=== PATIENT | male | born 1970 | race Caucasian/White ===

== ENCOUNTER 2016-09-06 11:02 | Inpatient (IN) | payer OTHER ==
[2016-09-06] MEDS ORDERED: Thiamine IV* 100 MG, Folic Acid IV* 1 MG, Multiple Vitamin IV ADULT* 10 ML in NS 0.9% 1... IV ONE (11:15)
--- NOTE | 2016-09-06 11:42 | RAD ---
HISTORY: Syncope COMPARISONS: None TECHNIQUE: Multiple contiguous axial CT scans were obtained of the head without intravenous contrast. FINDINGS: HEMORRHAGE/INFARCT: There is no hemorrhage or acute infarct. MASSES/SHIFT: There is no mass or shift. EXTRA-AXIAL SPACES: There are no extra-axial fluid collections. SULCI AND VENTRICLES: The sulci and ventricles are normal in size and position for the patient's stated age. CEREBRUM: There are no focal parenchymal abnormalities. BRAINSTEM: There are no focal parenchymal abnormalities. CEREBELLUM: There are no focal parenchymal abnormalities. VESSELS: The vessels are grossly normal. PARANASAL SINUSES: There are mucus retention cysts versus polypoid mucosal thickening of the maxillary sinuses bilaterally. ORBITS: The orbits are unremarkable. BONES AND SOFT TISSUE: No bone or soft tissue abnormalities are noted. OTHER: None IMPRESSION: NO ACUTE INTRACRANIAL PATHOLOGY.
--- NOTE | 2016-09-06 11:46 | RAD ---
HISTORY: Syncope COMPARISONS: None TECHNIQUE: Multiple contiguous axial CT scans were obtained of the cervical spine without intravenous contrast, with coronal and sagittal multiplanar reformations. FINDINGS: The study is limited by patient motion artifact. BRAIN: The visualized brain is unremarkable CENTRAL CANAL: Evaluation of the central canal is limited on CT technique; however, there is no obvious canalicular mass or epidural hemorrhage. ALIGNMENT: There is straightening of the cervical lordosis. VERTEBRAL BODIES: The odontoid process is intact. The atlantoaxial intervals are symmetric. The vertebral bodies are normal in attenuation, without fracture. There is multilevel anterolateral marginal osteophyte formation. JOINTS: There is osteoporosis of the uncovertebral and facet joints. MUSCULATURE: Unremarkable INTERVERTEBRAL DISCS: There is diffuse loss of intervertebral disc height. AXIAL IMAGES: C2-C3: There is no osseous neural foraminal narrowing or central canal stenosis. C3-C4: There is no osseous neural foraminal narrowing or central canal stenosis. C4-C5: There is no osseous neural foraminal narrowing or central canal stenosis. C5-C6: There is bilateral uncovertebral and facet hypertrophy with moderate to severe bilateral neural foraminal narrowing. C6-C7: There is bilateral uncovertebral and facet hypertrophy with moderate to severe bilateral neural foraminal narrowing. C7-T1: There is no osseous neural foraminal narrowing or central canal stenosis. SOFT TISSUES: The visualized soft tissues of the neck are unremarkable. The prevertebral fat stripe is preserved. OTHER: None. IMPRESSION: 1. DEGENERATIVE DISC DISEASE AND OSTEOARTHRITIS. 2. NO ACUTE OSSEOUS INJURY TO THE CERVICAL SPINE
[2016-09-06 11:52] LABS: Hematocrit 44 % (42-52); Hemoglobin 14.8 g/dl (14.0-18.0); Mean Corpuscular HGB Conc 33 g/dl (31-36); Mean Corpuscular Hemoglobin 30 pg (27-31); Mean Corpuscular Volume 90 fL (80-94); Mean Platelet Volume 8 um3 (7.4-10.4); Red Blood Count 4.91 10^6/ul (4.0-5.4); Red Cell Distribution Width 14 % (10.5-15); White Blood Count 5.9 10^3/ul (3.5-10.8)
[2016-09-06 12:17] LABS: Albumin 4.2 g/dL (3.2-5.2); Calcium 8.5 mg/dL (8.6-10.3); EGFR African American 139.7 (>60); EGFR Non-African American 108.6 (>60); Globulin 2.6 g/dL (2-4); Potassium 3.4 mmol/L (3.5-5.0); Total Bilirubin 1.2 mg/dL (0.2-1.0); Total Protein 6.8 g/dL (6.4-8.9); Troponin I 0.01 ng/mL (<0.04)
--- NOTE | 2016-09-06 12:35 | RAD ---
HISTORY: Syncope COMPARISONS: None VIEWS:1: Single frontal portable view of the chest at 12:10 PM FINDINGS: LINES AND TUBES: None. CARDIOMEDIASTINAL SILHOUETTE: The cardiomediastinal silhouette is normal for portable technique. PLEURA: The costophrenic angles are sharp. No pleural abnormalities are noted. LUNG PARENCHYMA: The lungs are clear. ABDOMEN: The upper abdomen is clear. There is no subphrenic gas. BONES AND SOFT TISSUES: No bone or soft tissue abnormalities are noted. IMPRESSION: NO ACTIVE CARDIOPULMONARY DISEASE.
[2016-09-06 12:47] LABS: Urine Bacteria Absent (Absent); Urine Bilirubin 1+ (Negative); Urine Glucose 1+(50 mg/dL) (Negative); Urine Nitrite Negative (Negative)
[2016-09-06 12:52] LABS: Magnesium 1.7 mg/dL (1.9-2.7)
[2016-09-06 12:56] LABS: Benzodiazepine Urine Screen None Detected (None Detect)
[2016-09-06] MEDS ORDERED: Magnesium Oxide TAB* 400 MG PO ONE (14:10)
[2016-09-06] MEDS ORDERED: Potassium Chlor TAB* 20 MEQ TAB.ER PO ONE (14:10)
[2016-09-06] MEDS ORDERED: NS 0.9% 1000 ML* 1,000 ML IV ONE (15:41)
[2016-09-06] MEDS ORDERED: Magnesium Sulfate 1 GM IV* 1 GM/100 ML BAG IV ONE (15:43)
[2016-09-06] MEDS: LORazepam TAB(*) 1 MG PO SCH ×3 (16:46→21:37)
[2016-09-06] MEDS: NS 0.9% 1000 ML* 1,000 ML IV SCH (17:52)
--- NOTE | 2016-09-06 21:36 | HP ---
HISTORY AND PHYSICAL: DATE OF ADMISSION: 09/06/16 ATTENDING PHYSICIAN: Dr. Buitrago* (report dictated Pam May, ANTONI). PRIMARY CARE PROVIDER: [facility] per the patient, he does not remember his primary care provider's name and reports that she is a new provider to him, as well as he has not been to the doctor in many years. CHIEF COMPLAINT: Alcohol withdrawal and fall. HISTORY OF PRESENT ILLNESS: Mr. Ordoñez is a 45-year-old male with a past medical history of long-term alcohol abuse, depression, hypertension who presented to the emergency department as a clinical assessment team call as the patient was dropped off at the front entrance in which he ran into the building , lost his footing and had a fall. The patient denies loss of consciousness. There was a question if he actually had a syncopal episode, but per the patient , he did not lose consciousness and as well, the video cameras were evaluated and the patient appeared to have lost his stepping. The patient reported that he came to the hospital for "help with alcohol detox." He reports that he drinks a liter of vodka a day and does not remember the last time he has not drank, he reports it has been many years. He reports that he has been trying to cut back at home; however, he has been getting "severe tremors." Currently, in the emergency department, he reports tremors. He is noted to be tachycardic and had a run of possible tachycardia versus SVT with heart rate in the 160s which were resolved with a vagal maneuver. The patient denies any history of detox, seizures, or delirium tremens. He does report that maybe 6 or 7 years ago, he quit for approximately 1 year in which he was a patient at [facility] outpatient rehab. He reports other than that 1 year of being sober. He has consistently drank since age 24 years old. Again, he reports that he drinks a liter of vodka a day. He denies recreational drug use. Distant tobacco abuse. The patient reports a history of hypertension, but does not take any medications. He has not seen a primary care provider in "many many years." Currently, in the emergency department, the patient is alert and oriented x3. He was very pleasant on evaluation. He appears to have some tremors which the patient also admits to. Again denies hallucinations, nausea, vomiting, diarrhea , or abdominal pain. PAST MEDICAL HISTORY: 1. Long-term alcohol abuse. 2. Distant tobacco abuse. 3. Depression. 4. Hypertension, untreated. HOME MEDICATIONS: 1. Zoloft 50 mg p.o. daily. 2. Ibuprofen 600 mg p.o. q.6 hours p.r.n. ALLERGIES: No known allergies. FAMILY HISTORY: The patient reports a family history in his grandparents of coronary artery disease, type 2 diabetes, and cancer. The patient reports that his mother and father are both alcoholics. SOCIAL HISTORY: The patient reports that he quit tobacco abuse in the . Drinks 1 L of vodka a day for the past 22 years, reporting 1 year of sobriety approximately 6 years ago. The patient denies recreational drug use. He is and has 2 children, ages 11 and 6. His is his healthcare proxy. REVIEW OF SYSTEMS: A 14-point review of systems was performed. All the pertinent positives and negatives are mentioned in the history of present illness. All the remaining systems are negative. PHYSICAL EXAMINATION GENERAL APPEARANCE: A 45-year-old male lying in the emergency department stretcher. Alert and oriented x3. Appears to have tremors, although he appears comfortable. Answering questions appropriately. Very pleasant on examination. VITAL SIGNS: Temperature 98.6, heart rate 110, respirations 16, O2 sat 98% on room air, blood pressure 131/75. HEENT: Head is normocephalic, atraumatic. Pupils equal, round, reactive to light. Oropharynx is clear. Dry mucous membranes. Good dentition. NECK: Supple. No cervical or supraclavicular lymphadenopathy. RESPIRATORY: Lungs are clear to auscultation bilaterally. Good aeration throughout. No accessory muscle use. CARDIAC: S1, S2. No murmurs, rubs, or gallops appreciated. No lower extremity edema noted. 2+ DP pulses bilaterally. ABDOMEN: Obese, distended, soft, nontender. Normal bowel sounds x4. Questionable hepatomegaly. MUSCULOSKELETAL: No clubbing or cyanosis noted. Full range of motion in all extremities. Strength is 5/5 throughout. SKIN: Warm, pink, dry. NEUROLOGIC: Cranial nerves II through XII are intact. Moves all extremities equally. Strength is 5/5 throughout. PSYCH: Alert and oriented x3. Appears slightly anxious. LABORATORY DATA AND DIAGNOSTIC STUDIES: WBC is 5.9, RBC 4.91, Hgb 14.8, HCT 44 , MCV 90, MCH 30, MCHC 33, RDW 14, platelet count 120. Sodium 140, potassium 3.4, chloride 100, carbon dioxide 28, anion gap 12, BUN 7, creatinine 0.78, glucose 166, lactic acid 2.9, calcium 8.5, magnesium 1.7. Total bilirubin 1.20 , AST 485, ALT 189, alkaline phosphatase 148, total creatine kinase 183. Troponin 0.01. Total protein 6.8, albumin 4.2, amylase 45. Alcohol level 451. Drug toxicology screen negative. CT of spine cervical, impression: 1. "Degenerative disk disease and osteoarthritis. 2. No acute osseous injury to the cervical spine." Chest x-ray, impression: "No active cardiopulmonary disease." Brain CT, impression: "No acute intracranial pathology." EKG: Sinus tachycardia with a rate of 107. No acute ischemic changes noted. No prior EKG to compare to. ASSESSMENT AND PLAN: Mr. Ordoñez is a 45-year-old male with a past medical history of longstanding alcohol abuse; hypertension, uncontrolled; depression; and distant tobacco abuse who presented to the emergency department today requesting detox, found to be having withdrawals. 1. Alcohol withdrawal: The patient will be monitored on telemetry. His alcohol level is 451 in the emergency department. His last drink was this morning. He is noted to have tremors in the emergency department. Plan for WAM protocol with Ativan sliding scale. The patient denies a history of seizures or delirium tremens. Normal saline x120 mL an hour x2 L. Replace electrolytes. Continue thiamine, folic acid, and multivitamin. Recheck labs in the morning. Social work consult. After the patient is more stable, the patient would benefit from a psych consult. 2. Fall: Initially, this was questioned to be syncope; however, the patient remembers tripping and falling and the event was re-watched on our video cameras. It did not appear the patient lost consciousness. I do not think he needs further workup for a syncopal episode. 3. Transaminitis secondary to alcohol abuse: No signs of ascites. The patient should undergo a liver ultrasound when he is more clinically stable. 4. Lactic acidosis: Noted to have a lactic acid of 2.9. Suspect secondary to dehydration. The patient received a liter in the emergency department. We will continue him on a rate. 5. Depression: The patient does report that he feels "extremely depressed" but denies suicidal ideation. Again, after the patient is more stable, I think he warrants a psych consult. 6. Hypertension: Per the patient, he takes no medications for this. He is fairly well controlled in the emergency department. Continue to monitor and treat as needed. 7. DVT prophylaxis: Heparin subcu. 8. Hospital status: Observation. TIME SPENT: Approximately 60 minutes were spent on this admission. PAM MAY, ANTONI [id number]/CPS #: [id number] OC
[2016-09-06] MEDS: Heparin VIAL(*) 5000 UNITS/ML VIAL (FIVE THOUSAND) SUBCUT SCH (21:39)
[2016-09-06] MEDS: Calcium Carbonate CHEW TAB* 500 MG (TUMS) PO PRN ×2 (22:07→22:08)
[2016-09-07] MEDS: LORazepam TAB(*) 1 MG PO SCH ×5 (01:31→09:17)
[2016-09-07] MEDS: NS 0.9% 1000 ML* 1,000 ML IV SCH (02:06)
[2016-09-07 05:15] LABS: Hematocrit 42 % (42-52); Hemoglobin 13.9 g/dl (14.0-18.0); Mean Corpuscular HGB Conc 33 g/dl (31-36); Mean Corpuscular Hemoglobin 30 pg (27-31); Mean Corpuscular Volume 90 fL (80-94); Mean Platelet Volume 9 um3 (7.4-10.4); Red Blood Count 4.63 10^6/ul (4.0-5.4); Red Cell Distribution Width 13 % (10.5-15)
[2016-09-07 05:18] LABS: Add Diff/Slide Review? Slide Review Added; Comments Flag Yes
[2016-09-07 05:28] LABS: Albumin 3.9 g/dL (3.2-5.2); BUN/Creatinine Ratio 5.4 (8-20); Calcium 8.2 mg/dL (8.6-10.3); EGFR African American 204.8 (>60); EGFR Non-African American 159.2 (>60); Globulin 2.6 g/dL (2-4); Magnesium 1.4 mg/dL (1.9-2.7); Potassium 3.8 mmol/L (3.5-5.0); Total Bilirubin 1.6 mg/dL (0.2-1.0); Total Protein 6.5 g/dL (6.4-8.9)
[2016-09-07] MEDS: Heparin VIAL(*) 5000 UNITS/ML VIAL (FIVE THOUSAND) SUBCUT SCH ×3 (05:53→22:15)
[2016-09-07] MEDS: Sertraline* 25 MG TAB PO SCH (07:07)
[2016-09-07] MEDS: Multivitamins/Minerals TAB PO SCH (07:08)
[2016-09-07] MEDS: Thiamine TAB* 100 MG TAB PO SCH (07:08)
[2016-09-07] MEDS: Folic Acid TAB* 1 MG PO SCH (07:08)
--- NOTE | 2016-09-07 08:37 | ED ---
Edward Smith Matthew, scribed for Artur Gates MD on 09/06/16 at 1208 . Adult Trauma - HPI Summary HPI Summary: A 45 y/o male presents to the ED after falling while running into the hospital. According to the nurse, the patient fell face forward striking his head and nose. The fall was not controlled and it was a questionable syncopal episode. He is unsure if had LOC. The patient came to the ED today seeking detox for his long standing Hx of alcohol abuse. He states that he drinks daily and drank this morning, but it not intoxicated. He denies any pain including neck and back pain. - History of Current Complaint Chief Complaint: EDSyncope Stated Complaint: SYNCOPE Time Seen by Provider: 09/06/16 11:06 Hx Obtained From: Patient Mechanism of Injury: Fall Ambulatory at the Scene: No Loss of Consciousness: unsure Onset/Duration: Started Minutes Ago, Traumatic Current Severity: None Pain Intensity: 0 Pain Scale Used: 0-10 Numeric Location: Head Aggravating Factor(s): Nothing Alleviating Factor(s): Nothing Associated Signs & Symptoms: Positive: Other: - NO back or neck pain - Allergy/Home Medications Allergies/Adverse Reactions: Allergies Allergy/AdvReac Type Severity Reaction Status Date / Time No Known Allergies Allergy Verified 09/11/12 12:51 Home Medications: Home Medications Sertraline* [Zoloft*] 50 mg PO DAILY 09/06/16 [History Confirmed 09/06/16] PMH/Surg Hx/FS Hx/Imm Hx Endocrine/Hematology History: Denies: Hx Diabetes, Hx Thyroid Disease Cardiovascular History: Denies: Hx Hypertension Respiratory History: Denies: Hx Asthma, Hx Chronic Obstructive Pulmonary Disease (COPD) GI History: Denies: Hx Ulcer Infectious Disease History: Denies: Hx Hepatitis, Hx Human Immunodeficiency Virus (HIV), Traveled Outside the [place] in Last 30 Days - Family History Known Family History: Positive: Cardiac Disease, Hypertension, Diabetes - Social History Alcohol Use: Daily Hx Substance Use: No Substance Use Type: Reports: None Hx Tobacco Use: Yes Review of Systems Constitutional: Negative Eyes: Negative ENT: Negative Cardiovascular: Negative Respiratory: Negative Gastrointestinal: Negative Genitourinary: Negative Musculoskeletal: Negative Skin: Negative Positive: Syncope - Questionable Psychological: Other - alcohol abuse All Other Systems Reviewed And Are Negative: Yes Physical Exam - Summary Physical Exam Summary: VITAL SIGNS: Reviewed. GENERAL: Patient is a well developed and nourished male who is lying comfortable in the stretcher. He has alcohol in his breath. Patient is not in any acute respiratory distress. HEAD AND FACE: No signs of trauma. No ecchymosis, hematomas or skull depressions. No sinus tenderness. EYES: PERRLA, EOMI x 2, No injected conjunctiva, no nystagmus. EARS: Hearing grossly intact. Ear canals and tympanic membranes are within normal limits. No Hemotympanum. MOUTH: Oropharynx within normal limits. NECK: Supple, trachea is midline, no adenopathy, no JVD, no carotid bruit. Patient was in a C spine collar. no c-spine tenderness, neck with full ROM. However since patient is intoxicated I keep the C spine. CHEST: Symmetric, no tenderness at palpation LUNGS: Clear to auscultation bilaterally. No wheezing or crackles. CVS: Regular rate and rhythm, S1 and S2 present, no murmurs or gallops appreciated. ABDOMEN: Soft, non-tender. No signs of distention. No rebound no guarding, and no masses palpated. Bowel sounds are normal. EXTREMITIES: FROM in all major joints, no edema, no cyanosis or clubbing. NEURO: Alert and oriented x 3. No acute neurological deficits. Speech is normal and follows commands. SKIN: Dry and warm Triage Information Reviewed: Yes Vital Signs On Initial Exam: Initial Vitals Temp Pulse Resp BP Pulse Ox 99.4 F 103 20 158/103 92 09/06/16 11:07 09/06/16 11:07 09/06/16 11:07 09/06/16 11:07 09/06/16 11:07 Vital Signs Reviewed: Yes Procedures - Procedure Summary Procedure Summary: Procedure - Suture nasal bride 0.7 mm superficial suture Patient was positioned appropriately, 5 cc lidocaine without epinephrine was used as a local anesthetic. 100cc NaCl was used for irrigation. Patient was sterile draped with wound exposed. _4_x _5.0 nylon interrupted sutures were placed with good approximation. Procedure tolerated without complications. Wound dressed with bacitracin and sterile gauze. Diagnostics - Vital Signs Vital Signs Temp Pulse Resp BP Pulse Ox 09/06/16 11:07 99.4 F 103 20 158/103 92 - Laboratory Lab Results: Lab Results 09/06/16 09/06/16 09/06/16 Range/Units 11:40 11:40 11:40 WBC 5.9 (3.5-10.8) 10^3/ul RBC 4.91 (4.0-5.4) 10^6/ul Hgb 14.8 (14.0-18.0) g/dl Hct 44 (42-52) % MCV 90 (80-94) fL MCH 30 (27-31) pg MCHC 33 (31-36) g/dl RDW 14 (10.5-15) % Plt Count 120 L (150-450) 10^3/ul MPV 8 (7.4-10.4) um3 Neut % (Auto) 58.3 (38-83) % Lymph % (Auto) 30.0 (25-47) % [place] % (Auto) 10.9 H (1-9) % Eos % (Auto) 0.4 (0-6) % Baso % (Auto) 0.4 (0-2) % Absolute Neuts (auto) 3.5 (1.5-7.7) 10^3/ul Absolute Lymphs (auto) 1.8 (1.0-4.8) 10^3/ul Absolute Monos (auto) 0.6 (0-0.8) 10^3/ul Absolute Eos (auto) 0 (0-0.6) 10^3/ul Absolute Basos (auto) 0 (0-0.2) 10^3/ul Absolute Nucleated RBC 0.01 10^3/ul Nucleated RBC % 0.2 Sodium 140 (133-145) mmol/L Potassium 3.4 L (3.5-5.0) mmol/L Chloride 100 L (101-111) mmol/L Carbon Dioxide 28 (22-32) mmol/L Anion Gap 12 H (2-11) mmol/L BUN 7 (6-24) mg/dL Creatinine 0.78 (0.67-1.17) mg/dL Est GFR ( Amer) 139.7 (>60) Est GFR (Non-Af Amer) 108.6 (>60) BUN/Creatinine Ratio 9.0 (8-20) Glucose 166 H (70-100) mg/dL Lactic Acid 2.9 H* (0.5-2.0) mmol/L Calcium 8.5 L (8.6-10.3) mg/dL Magnesium 1.7 L (1.9-2.7) mg/dL Total Bilirubin 1.20 H (0.2-1.0) mg/dL AST 485 H (13-39) U/L ALT 189 H (7-52) U/L Alkaline Phosphatase 148 H (34-104) U/L Total Creatine Kinase 183 (10-223) U/L Troponin I 0.01 (<0.04) ng/mL Total Protein 6.8 (6.4-8.9) g/dL Albumin 4.2 (3.2-5.2) g/dL Globulin 2.6 (2-4) g/dL Albumin/Globulin Ratio 1.6 (1-3) Amylase 45 (29-103) U/L Urine Color Urine Appearance Urine pH (5-9) Ur Specific [place] (1.010-1.030) Urine Protein (Negative) Urine Ketones (Negative) Urine Blood (Negative) Urine Nitrate (Negative) Urine Bilirubin (Negative) Urine Urobilinogen (Negative) Ur Leukocyte Esterase (Negative) Urine WBC (Auto) (Absent) Urine RBC (Auto) (Absent) Ur Squamous Epith Cells (Absent) Urine Bacteria (Absent) Hyaline Casts (Absent) Urine Glucose (Negative) Urine Opiates Screen (None Detect) Ur Barbiturates Screen (None Detect) Ur Phencyclidine Scrn (None Detect) Ur Amphetamines Screen (None Detect) U Benzodiazepines Scrn (None Detect) Urine Cocaine Screen (None Detect) U Cannabinoids Screen (None Detect) Serum Alcohol 451 H* (<10) mg/dL 09/06/16 09/06/16 Range/Units 12:30 12:30 WBC (3.5-10.8) 10^3/ul RBC (4.0-5.4) 10^6/ul Hgb (14.0-18.0) g/dl Hct (42-52) % MCV (80-94) fL MCH (27-31) pg MCHC (31-36) g/dl RDW (10.5-15) % Plt Count (150-450) 10^3/ul MPV (7.4-10.4) um3 Neut % (Auto) (38-83) % Lymph % (Auto) (25-47) % [place] % (Auto) (1-9) % Eos % (Auto) (0-6) % Baso % (Auto) (0-2) % Absolute Neuts (auto) (1.5-7.7) 10^3/ul Absolute Lymphs (auto) (1.0-4.8) 10^3/ul Absolute Monos (auto) (0-0.8) 10^3/ul Absolute Eos (auto) (0-0.6) 10^3/ul Absolute Basos (auto) (0-0.2) 10^3/ul Absolute Nucleated RBC 10^3/ul Nucleated RBC % Sodium (133-145) mmol/L Potassium (3.5-5.0) mmol/L Chloride (101-111) mmol/L Carbon Dioxide (22-32) mmol/L Anion Gap (2-11) mmol/L BUN (6-24) mg/dL Creatinine (0.67-1.17) mg/dL Est GFR ( Amer) (>60) Est GFR (Non-Af Amer) (>60) BUN/Creatinine Ratio (8-20) Glucose (70-100) mg/dL Lactic Acid (0.5-2.0) mmol/L Calcium (8.6-10.3) mg/dL Magnesium (1.9-2.7) mg/dL Total Bilirubin (0.2-1.0) mg/dL AST (13-39) U/L ALT (7-52) U/L Alkaline Phosphatase (34-104) U/L Total Creatine Kinase (10-223) U/L Troponin I (<0.04) ng/mL Total Protein (6.4-8.9) g/dL Albumin (3.2-5.2) g/dL Globulin (2-4) g/dL Albumin/Globulin Ratio (1-3) Amylase (29-103) U/L Urine Color [place] Urine Appearance Cloudy Urine pH 6.0 (5-9) Ur Specific [place] 1.024 (1.010-1.030) Urine Protein 2+(100 mg/dl) H (Negative) Urine Ketones Negative (Negative) Urine Blood 2+ H (Negative) Urine Nitrate Negative (Negative) Urine Bilirubin 1+ (Negative) Urine Urobilinogen Positive H (Negative) Ur Leukocyte Esterase Negative (Negative) Urine WBC (Auto) Absent (Absent) Urine RBC (Auto) 2+(6-10/hpf) H (Absent) Ur Squamous Epith Cells Present H (Absent) Urine Bacteria Absent (Absent) Hyaline Casts Present H (Absent) Urine Glucose 1+(50 mg/dl) H (Negative) Urine Opiates Screen None detected (None Detect) Ur Barbiturates Screen None detected (None Detect) Ur Phencyclidine Scrn None detected (None Detect) Ur Amphetamines Screen None detected (None Detect) U Benzodiazepines Scrn None detected (None Detect) Urine Cocaine Screen None detected (None Detect) U Cannabinoids Screen None detected (None Detect) Serum Alcohol (<10) mg/dL Result Diagrams: 09/07/16 05:03 09/07/16 05:03 Lab Statement: Any lab studies that have been ordered have been reviewed, and results considered in the medical decision making process. - Radiology CXR Xray Interpretation: No Acute Changes - IMPRESSION: NO ACTIVE CARDIOPULMONARY DISEASE. Radiology Interpretation Completed By: Radiologist - CT C-Spine CT CT Interpretation: No Acute Changes - IMPRESSION: 1. DEGENERATIVE DISC DISEASE AND OSTEOARTHRITIS. 2. NO ACUTE OSSEOUS INJURY TO THE CERVICAL SPINE CT Interpretation Completed By: Radiologist Brain CT CT Interpretation: No Acute Changes - IMPRESSION: NO ACUTE INTRACRANIAL PATHOLOGY. CT Interpretation Completed By: Radiologist - EKG 11:15 Cardiac Rate: Tachycardia - 110 bpm EKG Rhythm: Sinus Tachycardia EKG Interpretation: No ST elevation Adult Trauma Course/Dx - Course Assessment/Plan: A 45 y/o male presents to the ED after falling while running into the hospital. According to the nurse, the patient fell face forward striking his head and nose. The fall was not controlled and it was a questionable syncopal episode. He is unsure if had LOC. The patient came to the ED today seeking detox for his long standing Hx of alcohol abuse. He states that he drinks daily and drank this morning, but it not intoxicated. He denies any pain including neck and back pain. Blood work WNL except Pt count of 150, potassium 3.4, Anion Gap of 12, Glucose 166, magnesium 1.7, AST 485, ALT, 189. Urinary toxicology negative except alcohol 451. Head CT shows no acute intracranial pathology. C-Spine shows DDD no acute osteoarthritis pathology. CXR shows is negative for a cardiopulmonary disease. EKG sinus tachy [address] elevations. In the ED course, the patient was given a banana bag and IV fluids, because he appears dehydated. While he was being managed in the ED, he developed an episode of tachycardia vs. SVT at 162 bpm, which resolved with vagal maneuvers. Patient was also give potassium chloride and magnesium. Since the patient has a Hx of syncope I do not know if its due to alcohol intoxication vs an arrhythmia which was observed in the ED. I discussed my physical exam finding with Dr. Brewer who accepted the patient for admission. The patient is A&Ox3 and hemodynamically stable. - Diagnoses Differential Diagnosis/HQI/PQRI: Positive: Contusion(s), Fracture, Hematoma(s), Sprain, Strain, Other - CVA, Vasovagal syncope, TIA Provider Diagnoses: Alcohol intoxication, Laceration, Nasal bone fracture, Scalp contusion, Facial contusion - Physician Notifications Discussed Care Of Patient With: Dr. Brewer (Hospitalist) at 14:14 -- Notified of patient's history and will admit the patient. Discharge - Discharge Plan Condition: Guarded Disposition: ADMITTED TO [facility] The documentation as recorded by the Edward dye Matthew accurately reflects the service I personally performed and the decisions made by me, Artur Gates MD.
[2016-09-07] MEDS: Ondansetron INJ* 2 MG/ML VIAL IV PRN ×2 (10:25→15:32)
[2016-09-07] MEDS: LORazepam INJ* 2 MG/ML 1 ML VIAL IV SCH ×7 (10:25→22:12)
--- NOTE | 2016-09-07 12:03 | PN ---
Subjective Date of Service: 09/07/16 Interval History: This is a 45 yo gentleman with depression and alcoholism who presented requesting help with detox. Patient has been admitted to the hospital and started on oral Ativan per [place] protocol. This am, patient is extremely tremulous and has been vomiting multiple times. No seizure activity. Denies hallucinations. No abdominal pain, CP or SOB. Objective Active Medications: Acetaminophen (Tylenol Tab*) 650 mg PO Q4H PRN PRN Reason: PAIN Calcium Carbonate (Tums*) 500 mg PO BID PRN PRN Reason: HEARTBURN Last Admin: 09/06/16 22:08 Dose: 500 mg Folic Acid (Folvite Tab*) 1 mg PO DAILY [facility] Last Admin: 09/07/16 07:08 Dose: 1 mg Heparin Sodium (Porcine) (Heparin Vial(*)) 5,000 units SUBCUT Q8HR [facility] Last Admin: 09/07/16 05:53 Dose: 5,000 units Sodium Chloride (Ns 0.9% 1000 Ml*) 1,000 mls @ 125 mls/hr IV PER RATE [facility] Stop: 09/07/16 23:44 Last Admin: 09/07/16 02:06 Dose: 125 mls/hr Lorazepam (Ativan Inj*) 0 mg IV .PER WAM SCORE [facility] PRN Reason: Protocol Last Admin: 09/07/16 10:25 Dose: 2 mg Multivitamins/Minerals (Theragran/Minerals Tab*) 1 tab PO DAILY [facility] Last Admin: 09/07/16 07:08 Dose: 1 tab Ondansetron HCl (Zofran Inj*) 4 mg IV Q4H PRN PRN Reason: NAUSEA Last Admin: 09/07/16 10:25 Dose: 4 mg Sertraline HCl (Zoloft*) 50 mg PO DAILY [facility] Last Admin: 09/07/16 07:07 Dose: 50 mg Thiamine HCl (Vitamin B-1 Tab*) 100 mg PO DAILY [facility] Last Admin: 09/07/16 07:08 Dose: 100 mg Vital Signs: Temp Pulse Resp BP Pulse Ox 98.4 F 102 20 160/99 97 09/07/16 09:14 09/07/16 09:14 09/07/16 10:25 09/07/16 09:14 09/07/16 09:14 Oxygen Devices in Use Now: None Appearance: Anxious and somewhat ill appearing gentleman Ears/Nose/Mouth/Throat: NL Teeth, Lips, Gums Neck: NL Appearance and Movements; NL JVP Respiratory: Symmetrical Chest Expansion and Respiratory Effort, Clear to Auscultation Cardiovascular: NL Sounds; No Murmurs; No JVD, RRR - tachycardic Abdominal: NL Sounds; No Tenderness; No Distention Extremities: No Edema Skin: No Rash or Ulcers Neurological: Alert and Oriented x 3 Result Diagrams: 09/07/16 05:03 09/07/16 05:03 Additional Lab and Data: . Assess/Plan/Problems-Billing Assessment: This is a 45 yo gentleman with depression and alcoholism who presented requesting assistance with detox with evidence of active withdrawal. - Patient Problems (1) Alcohol withdrawal Comment: Patient is in active withdrawal Switched from po to IV lorazepam as he has been vomiting multiple times No evidence of seizure or hallucination Cont IV lorazepam per [facility] protocol Patient is interested in rehab when he has completed detox (2) Transaminitis Comment: Secondary to alcohol abuse No signs of acute liver failure Improving (3) Fall Comment: Appeared mechanical, no syncope (4) Depression Comment: Patient is quite depressed and may benefit from psychiatric consultation when he has completed his detox process No suicidal ideations (5) Hypertension Comment: Moderately hypertensive, likely due to acute withdrawal No home medications Will wait to treat hypertension specifically until he has completed withdrawal Status and Disposition: Patient requires continued hospital care. Will convert to inpatient status.
[2016-09-07] MEDS ORDERED: Diazepam SYRINGE* 5 MG/ML SYRINGE IV ONE (15:32)
[2016-09-07] MEDS: Diazepam TAB(*) 10 MG PO SCH (16:20)
[2016-09-08] MEDS: Diazepam TAB(*) 10 MG PO SCH ×3 (00:06→20:47)
[2016-09-08] MEDS: LORazepam INJ* 2 MG/ML 1 ML VIAL IV SCH ×9 (00:10→18:10)
[2016-09-08] MEDS ORDERED: LORazepam INJ* 2 MG/ML 1 ML VIAL IV PUSH ONE ×4 (02:23→15:40)
[2016-09-08] MEDS: Heparin VIAL(*) 5000 UNITS/ML VIAL (FIVE THOUSAND) SUBCUT SCH ×3 (05:32→22:10)
[2016-09-08] MEDS: Sertraline* 25 MG TAB PO SCH (07:54)
[2016-09-08] MEDS: Folic Acid TAB* 1 MG PO SCH (07:54)
[2016-09-08] MEDS: Thiamine TAB* 100 MG TAB PO SCH (07:54)
[2016-09-08] MEDS: Multivitamins/Minerals TAB PO SCH (07:54)
[2016-09-08 09:35] LABS: BUN/Creatinine Ratio 9.1 (8-20); Calcium 9.1 mg/dL (8.6-10.3); EGFR African American 169.4 (>60); EGFR Non-African American 131.7 (>60); Globulin 2.6 g/dL (2-4); Potassium 3.8 mmol/L (3.5-5.0); Total Bilirubin 2.8 mg/dL (0.2-1.0); Total Protein 6.6 g/dL (6.4-8.9)
[2016-09-08] MEDS ORDERED: Magnesium Sulf 4 GM/100 ML IV* 4,000 MG/100 ML BAG IVPB ONE (10:30)
--- NOTE | 2016-09-08 10:51 | PN ---
Subjective Date of Service: 09/08/16 Interval History: Patient continues to score on the WAM protocol. He experienced some auditory hallucinations overnight and is incredibly unstable when attempting to ambulate. This am, patient appears less tremulous. He reports his appetite is starting to return. He denies nausea. He denies further hallucinations. He is quite concerned about his balance. Objective Active Medications: Acetaminophen (Tylenol Tab*) 650 mg PO Q4H PRN PRN Reason: PAIN Calcium Carbonate (Tums*) 500 mg PO BID PRN PRN Reason: HEARTBURN Last Admin: 09/06/16 22:08 Dose: 500 mg Diazepam (Valium Tab(*)) 10 mg PO Q12H [facility] PRN Reason: Taper Stop: 09/10/16 11:59 Last Admin: 09/08/16 07:54 Dose: 10 mg Folic Acid (Folvite Tab*) 1 mg PO DAILY [facility] Last Admin: 09/08/16 07:54 Dose: 1 mg Heparin Sodium (Porcine) (Heparin Vial(*)) 5,000 units SUBCUT Q8HR [facility] Last Admin: 09/08/16 05:32 Dose: 5,000 units Lactated Ringer's (Lactated Ringers 1000 Ml Bag*) 1,000 mls @ 125 mls/hr IV PER RATE [facility] Last Admin: 09/08/16 03:32 Dose: 125 mls/hr Magnesium Sulfate (Magnesium Sulf 4 Gm/100 Ml Iv*) 4,000 mg in 100 mls @ 33.333 mls/hr IVPB ONCE ONE Stop: 09/08/16 13:29 Lorazepam (Ativan Inj*) 0 mg IV .PER WAM SCORE [facility] PRN Reason: Protocol Last Admin: 09/08/16 09:00 Dose: 2 mg Multivitamins/Minerals (Theragran/Minerals Tab*) 1 tab PO DAILY [facility] Last Admin: 09/08/16 07:54 Dose: 1 tab Ondansetron HCl (Zofran Inj*) 4 mg IV Q4H PRN PRN Reason: NAUSEA Last Admin: 09/07/16 15:32 Dose: 4 mg Sertraline HCl (Zoloft*) 50 mg PO DAILY [facility] Last Admin: 09/08/16 07:54 Dose: 50 mg Thiamine HCl (Vitamin B-1 Tab*) 100 mg PO DAILY [facility] Last Admin: 09/08/16 07:54 Dose: 100 mg Vital Signs: Temp Pulse Resp BP Pulse Ox 98.0 F 125 16 140/102 94 09/08/16 08:59 09/08/16 10:27 09/08/16 10:27 09/08/16 10:27 09/08/16 10:27 Oxygen Devices in Use Now: None Appearance: Mildly anxious appearing young man Respiratory: Symmetrical Chest Expansion and Respiratory Effort, Clear to Auscultation Cardiovascular: NL Sounds; No Murmurs; No JVD, RRR Abdominal: NL Sounds; No Tenderness; No Distention Extremities: No Edema Skin: No Rash or Ulcers Neurological: Alert and Oriented x 3, - - mild tremor, improved Result Diagrams: 09/07/16 05:03 09/08/16 08:55 Additional Lab and Data: . Assess/Plan/Problems-Billing Assessment: This is a 45 yo gentleman with depression and alcoholism who presented requesting assistance with detox with evidence of active withdrawal. - Patient Problems (1) Alcohol withdrawal Comment: Patient is in active withdrawal, requiring frequent high doses of IV lorazepam He has been experiencing intermittent auditory hallucinations Started tapering dose of Valium for seizure prophylaxis Patient is interested in rehab when he has completed detox (2) Transaminitis Comment: Secondary to alcohol abuse No signs of acute liver failure Improving (3) Fall Comment: Appeared mechanical, no syncope (4) Depression Comment: Patient is quite depressed and may benefit from psychiatric consultation when he has completed his detox process No suicidal ideations (5) Hypertension Comment: Moderately hypertensive, likely due to acute withdrawal No home medications Will wait to treat hypertension specifically until he has completed withdrawal Status and Disposition: Patient requires continued hospital care. Inpatient. Will likely require 2-3 additional hospital days.
[2016-09-08] MEDS ORDERED: LORazepam INJ* 2 MG/ML 1 ML VIAL IV SCH ×2 (12:43→14:06)
--- NOTE | 2016-09-08 14:07 | PN ---
Progress Note - Progress Note Note: Cross cover Receiving ativan per WAM but still very anxious and tremulous. Increased ativan dosing on protocol.
[2016-09-08] MEDS: Dexmedetomidine* 50 ML IVPB SCH (18:24)
[2016-09-09] MEDS: Dexmedetomidine* 50 ML IVPB SCH (04:36)
[2016-09-09] MEDS: Heparin VIAL(*) 5000 UNITS/ML VIAL (FIVE THOUSAND) SUBCUT SCH ×3 (05:32→22:01)
[2016-09-09] MEDS: Acetaminophen TAB* 325 MG PO PRN (05:41)
[2016-09-09 06:11] LABS: Albumin 3.4 g/dL (3.2-5.2); Calcium 8.4 mg/dL (8.6-10.3); EGFR African American 160.9 (>60); EGFR Non-African American 125.1 (>60); Globulin 2.3 g/dL (2-4); Potassium 3.7 mmol/L (3.5-5.0); Total Protein 5.7 g/dL (6.4-8.9)
--- NOTE | 2016-09-09 08:24 | PN ---
Subjective Date of Service: 09/09/16 Interval History: Patient appears to have done quite well overnight after Precedex initiated. Remains lightly sedated. No longer scoring on WAM assessments. Patient reports some pain in his legs, offers no additional complaints otherwise. Objective Active Medications: Acetaminophen (Tylenol Tab*) 650 mg PO Q4H PRN PRN Reason: PAIN Last Admin: 09/09/16 05:41 Dose: 650 mg Calcium Carbonate (Tums*) 500 mg PO BID PRN PRN Reason: HEARTBURN Last Admin: 09/06/16 22:08 Dose: 500 mg Diazepam (Valium Tab(*)) 10 mg PO Q12H [facility] PRN Reason: Taper Stop: 09/10/16 11:59 Last Admin: 09/08/16 20:47 Dose: Not Given Folic Acid (Folvite Tab*) 1 mg PO DAILY [facility] Last Admin: 09/08/16 07:54 Dose: 1 mg Heparin Sodium (Porcine) (Heparin Vial(*)) 5,000 units SUBCUT Q8HR [facility] Last Admin: 09/09/16 05:32 Dose: 5,000 units Lactated Ringer's (Lactated Ringers 1000 Ml Bag*) 1,000 mls @ 125 mls/hr IV PER RATE [facility] Last Admin: 09/09/16 07:53 Dose: 125 mls/hr Dexmedetomidine HCl (Precedex*) 50 mls @ 4.559 mls/hr IVPB .(Initial Rate) [facility] PRN Reason: 0.2 MCG/KG/HR Last Admin: 09/09/16 04:36 Dose: 4.559 mls/hr Lorazepam (Ativan Inj*) 0 mg IV .PER WAM SCORE [facility] PRN Reason: Protocol Last Admin: 09/08/16 18:10 Dose: 4 mg Multivitamins/Minerals (Theragran/Minerals Tab*) 1 tab PO DAILY [facility] Last Admin: 09/08/16 07:54 Dose: 1 tab Ondansetron HCl (Zofran Inj*) 4 mg IV Q4H PRN PRN Reason: NAUSEA Last Admin: 09/07/16 15:32 Dose: 4 mg Sertraline HCl (Zoloft*) 50 mg PO DAILY [facility] Last Admin: 09/08/16 07:54 Dose: 50 mg Thiamine HCl (Vitamin B-1 Tab*) 100 mg PO DAILY [facility] Last Admin: 09/08/16 07:54 Dose: 100 mg Vital Signs: Temp Pulse Resp BP Pulse Ox 98.5 F 73 17 122/73 96 09/09/16 04:00 09/09/16 07:00 09/09/16 07:00 09/09/16 07:00 09/09/16 07:00 Appearance: Lightly sedated, easily awakes upon calling his name, in NAD Neck: NL Appearance and Movements; NL JVP Respiratory: Symmetrical Chest Expansion and Respiratory Effort, Clear to Auscultation Cardiovascular: NL Sounds; No Murmurs; No JVD, RRR Abdominal: NL Sounds; No Tenderness; No Distention Extremities: No Edema Skin: No Rash or Ulcers Neurological: - - lightly sedated, intermittently confused Result Diagrams: 09/07/16 05:03 09/09/16 05:39 Additional Lab and Data: . Microbiology and Other Data: Microbiology 09/08/16 16:05 Nasal Screen MRSA (PCR)([facility]) - Final Nasal Mrsa Negative Assess/Plan/Problems-Billing Assessment: This is a 45 yo gentleman with depression and alcoholism who presented requesting assistance with detox with evidence of active withdrawal. - Patient Problems (1) Alcohol withdrawal Comment: Transferred to ICU yesterday afternoon due to high benzo need and combativeness Improved with Precedex Continue tapering dose of Valium for seizure prophylaxis Cont symptom based IV lorazepam boluses If withdrawal symptoms remain well controlled throughout the day, will discontinue Precedex drip Patient is interested in rehab when he has completed detox (2) Transaminitis Comment: Secondary to alcohol abuse No signs of acute liver failure Improving (3) Fall Comment: Appeared mechanical, no syncope (4) Depression Comment: Patient is quite depressed and may benefit from psychiatric consultation when he has completed his detox process No suicidal ideations (5) Hypertension Comment: Moderately hypertensive, likely due to acute withdrawal No home medications Will wait to treat hypertension specifically until he has completed withdrawal Status and Disposition: Cont ICU care. Inpatient
[2016-09-09] MEDS: Thiamine TAB* 100 MG TAB PO SCH (09:02)
[2016-09-09] MEDS: Multivitamins/Minerals TAB PO SCH (09:02)
[2016-09-09] MEDS: Sertraline* 25 MG TAB PO SCH (09:02)
[2016-09-09] MEDS: Folic Acid TAB* 1 MG PO SCH (09:02)
[2016-09-09] MEDS: Diazepam TAB(*) 10 MG PO SCH ×2 (09:14→22:01)
[2016-09-09] MEDS: LORazepam INJ* 2 MG/ML 1 ML VIAL IV SCH ×2 (10:23→16:31)
[2016-09-10] MEDS: LORazepam INJ* 2 MG/ML 1 ML VIAL IV SCH ×2 (01:34→08:09)
[2016-09-10] MEDS: Heparin VIAL(*) 5000 UNITS/ML VIAL (FIVE THOUSAND) SUBCUT SCH ×3 (06:40→22:54)
[2016-09-10] MEDS: Sertraline* 25 MG TAB PO SCH (08:09)
[2016-09-10] MEDS: Thiamine TAB* 100 MG TAB PO SCH (08:09)
[2016-09-10] MEDS: Multivitamins/Minerals TAB PO SCH (08:09)
[2016-09-10] MEDS: Folic Acid TAB* 1 MG PO SCH (08:10)
[2016-09-10] MEDS: Diazepam TAB(*) 10 MG PO SCH (08:10)
--- NOTE | 2016-09-10 10:12 | PN ---
Subjective Date of Service: 09/10/16 Interval History: Patient appears markedly improved. He denies n/v. No abdominal pain. He continues to have difficulty ambulating, he feels that his balance is off and falls backwards easily. This is improved over the last 48 hours. 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 Objective Active Medications: Acetaminophen (Tylenol Tab*) 650 mg PO Q4H PRN PRN Reason: PAIN Last Admin: 09/09/16 05:41 Dose: 650 mg Calcium Carbonate (Tums*) 500 mg PO BID PRN PRN Reason: HEARTBURN Last Admin: 09/06/16 22:08 Dose: 500 mg Diazepam (Valium Tab(*)) 5 mg PO Q12H [facility] PRN Reason: Taper Stop: 09/10/16 11:59 Last Admin: 09/10/16 08:10 Dose: 5 mg Folic Acid (Folvite Tab*) 1 mg PO DAILY [facility] Last Admin: 09/10/16 08:10 Dose: 1 mg Heparin Sodium (Porcine) (Heparin Vial(*)) 5,000 units SUBCUT Q8HR [facility] Last Admin: 09/10/16 06:40 Dose: 5,000 units Lorazepam (Ativan Inj*) 0 mg IV .PER WAM SCORE [facility] PRN Reason: Protocol Last Admin: 09/10/16 08:09 Dose: 2 mg Multivitamins/Minerals (Theragran/Minerals Tab*) 1 tab PO DAILY [facility] Last Admin: 09/10/16 08:09 Dose: 1 tab Ondansetron HCl (Zofran Inj*) 4 mg IV Q4H PRN PRN Reason: NAUSEA Last Admin: 09/07/16 15:32 Dose: 4 mg Sertraline HCl (Zoloft*) 50 mg PO DAILY [facility] Last Admin: 09/10/16 08:09 Dose: 50 mg Thiamine HCl (Vitamin B-1 Tab*) 100 mg PO DAILY [facility] Last Admin: 09/10/16 08:09 Dose: 100 mg Vital Signs: Temp Pulse Resp BP Pulse Ox 98.3 F 105 16 152/109 96 09/10/16 07:40 09/10/16 07:40 09/10/16 09:09 09/10/16 07:40 09/10/16 07:40 Oxygen Devices in Use Now: None Appearance: Well appearing, brighter affect, NAD Neck: NL Appearance and Movements; NL JVP Respiratory: Symmetrical Chest Expansion and Respiratory Effort, Clear to Auscultation Cardiovascular: NL Sounds; No Murmurs; No JVD, RRR Abdominal: NL Sounds; No Tenderness; No Distention Extremities: No Edema Skin: No Rash or Ulcers Neurological: Alert and Oriented x 3, - - gait was not specifically assessed, but trunk control with sitting up is much improved Result Diagrams: 09/07/16 05:03 09/09/16 05:39 Additional Lab and Data: . Microbiology and Other Data: Microbiology 09/08/16 16:05 Nasal Screen MRSA (PCR)([facility]) - Final Nasal Mrsa Negative Assess/Plan/Problems-Billing Assessment: This is a 45 yo gentleman with depression and alcoholism who presented requesting assistance with detox with evidence of active withdrawal. - Patient Problems (1) Alcohol withdrawal Comment: Transferred back to medical floor yesterday evening WAM score 4-6 overnight Continue tapering dose of Valium for seizure prophylaxis Transition to oral lorazepam for symptom based treatment at lower doses Patient is interested in rehab when he has completed detox (2) Transaminitis Comment: Secondary to alcohol abuse No signs of acute liver failure Improving (3) Gait disturbance Comment: Likely due to acute withdrawal and/or benzo use Could consider Wernicke's, he did receive IV thiamine at admission and continues on oral supplementation Appears to be improving, anticipate continued improvement as his required doses of benzos continue to taper (4) Depression Comment: Patient is quite depressed and may benefit from psychiatric consultation His thought process seems to have significantly at this time, will request psychiatric consultation for today or tomorrow No suicidal ideations (5) Hypertension Comment: Moderately hypertensive, likely due to acute withdrawal No home medications Will wait to treat hypertension specifically until he has completed withdrawal Status and Disposition: Continue inpatient care. Anticipate discharge to inpatient ETOH rehab center in 1-2 days.
[2016-09-10] MEDS: LORazepam TAB(*) 1 MG PO SCH ×4 (13:02→22:53)
[2016-09-11] MEDS: LORazepam TAB(*) 1 MG PO SCH ×6 (02:23→22:41)
[2016-09-11] MEDS: Heparin VIAL(*) 5000 UNITS/ML VIAL (FIVE THOUSAND) SUBCUT SCH ×3 (06:04→22:25)
[2016-09-11 06:38] LABS: Albumin 3.5 g/dL (3.2-5.2); BUN/Creatinine Ratio 7.5 (8-20); Calcium 8.8 mg/dL (8.6-10.3); EGFR African American 166.5 (>60); EGFR Non-African American 129.5 (>60); Globulin 2.5 g/dL (2-4); Total Bilirubin 1.4 mg/dL (0.2-1.0)
--- NOTE | 2016-09-11 08:49 | PN ---
Subjective Date of Service: 09/11/16 Interval History: Patient seen and examined at bedside. Augie reports "feeling better than before " and denies any acute complaint, including fever/chills, CP, SOB, abd pain, n/ v. Reports improvement in his gait and balance. He is hoping to get into an inpatient rehab so he can "keep getting better." No acute nursing concerns. Family History: Unchanged from Admission Social History: Unchanged from Admission Past Medical History: Unchanged from Admission Objective Active Medications: Acetaminophen (Tylenol Tab*) 650 mg PO Q4H PRN PRN Reason: PAIN Last Admin: 09/09/16 05:41 Dose: 650 mg Calcium Carbonate (Tums*) 500 mg PO BID PRN PRN Reason: HEARTBURN Last Admin: 09/06/16 22:08 Dose: 500 mg Folic Acid (Folvite Tab*) 1 mg PO DAILY [facility] Last Admin: 09/10/16 08:10 Dose: 1 mg Heparin Sodium (Porcine) (Heparin Vial(*)) 5,000 units SUBCUT Q8HR [facility] Last Admin: 09/11/16 06:04 Dose: 5,000 units Lorazepam (Ativan Tab(*)) 0 mg PO .PER WAM SCORE [facility] PRN Reason: Protocol Last Admin: 09/11/16 06:05 Dose: 1.5 mg Multivitamins/Minerals (Theragran/Minerals Tab*) 1 tab PO DAILY [facility] Last Admin: 09/10/16 08:09 Dose: 1 tab Ondansetron HCl (Zofran Inj*) 4 mg IV Q4H PRN PRN Reason: NAUSEA Last Admin: 09/07/16 15:32 Dose: 4 mg Potassium Chloride (Klor Con Er Tab*) 40 meq PO BID [facility] Stop: 09/11/16 21:01 Sertraline HCl (Zoloft*) 50 mg PO DAILY [facility] Last Admin: 09/10/16 08:09 Dose: 50 mg Thiamine HCl (Vitamin B-1 Tab*) 100 mg PO DAILY [facility] Last Admin: 09/10/16 08:09 Dose: 100 mg Vital Signs 09/10/16 09/10/16 09/10/16 09:09 10:10 10:16 Temperature 98.8 F Pulse Rate 96 Respiratory 16 16 16 Rate Blood Pressure 133/86 (mmHg) O2 Sat by Pulse 95 Oximetry 09/10/16 09/10/16 09/10/16 12:53 13:02 14:18 Temperature 97.8 F Pulse Rate 118 106 Respiratory 18 16 Rate Blood Pressure 137/100 140/97 (mmHg) O2 Sat by Pulse 96 96 Oximetry 09/10/16 09/10/16 09/10/16 14:50 15:02 15:34 Temperature 98.0 F 98.2 F Pulse Rate 107 108 Respiratory 18 16 16 Rate Blood Pressure 152/101 146/74 (mmHg) O2 Sat by Pulse 97 97 Oximetry 09/10/16 09/10/16 09/10/16 16:07 16:38 17:37 Temperature 98.6 F 98.2 F 98.1 F Pulse Rate 101 100 119 Respiratory 16 16 17 Rate Blood Pressure 136/91 149/107 158/116 (mmHg) O2 Sat by Pulse 98 96 92 Oximetry 09/10/16 09/10/16 09/10/16 17:41 18:57 19:41 Temperature 98.1 F Pulse Rate 107 Respiratory 16 16 16 Rate Blood Pressure 151/103 (mmHg) O2 Sat by Pulse 95 Oximetry 09/10/16 09/10/16 09/10/16 19:55 20:00 20:07 Temperature Pulse Rate Respiratory 18 18 18 Rate Blood Pressure (mmHg) O2 Sat by Pulse Oximetry 09/10/16 09/10/16 09/10/16 21:13 22:00 22:07 Temperature 98.1 F Pulse Rate 98 Respiratory 17 18 16 Rate Blood Pressure 137/96 (mmHg) O2 Sat by Pulse 95 Oximetry 09/10/16 09/10/16 09/11/16 22:22 22:53 00:00 Temperature 97.9 F Pulse Rate 101 Respiratory 17 18 18 Rate Blood Pressure 153/104 (mmHg) O2 Sat by Pulse 90 Oximetry 09/11/16 09/11/16 09/11/16 00:12 00:53 02:00 Temperature 98.3 F Pulse Rate 100 Respiratory 16 16 18 Rate Blood Pressure 140/98 (mmHg) O2 Sat by Pulse 97 Oximetry 09/11/16 09/11/16 09/11/16 02:07 02:23 04:00 Temperature 98.4 F Pulse Rate 120 Respiratory 16 18 18 Rate Blood Pressure 150/114 (mmHg) O2 Sat by Pulse 99 Oximetry 09/11/16 09/11/16 09/11/16 04:06 04:23 04:25 Temperature 98.7 F Pulse Rate 109 Respiratory 16 18 18 Rate Blood Pressure 156/104 (mmHg) O2 Sat by Pulse 98 Oximetry 09/11/16 09/11/16 09/11/16 05:58 05:59 06:05 Temperature Pulse Rate 102 Respiratory 18 18 18 Rate Blood Pressure 146/102 (mmHg) O2 Sat by Pulse 97 Oximetry 09/11/16 09/11/16 09/11/16 07:24 08:00 08:05 Temperature 97.9 F Pulse Rate 99 Respiratory 18 18 Rate Blood Pressure 136/95 (mmHg) O2 Sat by Pulse 97 Oximetry Oxygen Devices in Use Now: None Appearance: Well appearing male, sitting up in bed, in NAD Eyes: PERRLA Ears/Nose/Mouth/Throat: Mucous Membranes Moist Neck: NL Appearance and Movements; NL JVP Respiratory: Symmetrical Chest Expansion and Respiratory Effort, Clear to Auscultation Cardiovascular: NL Sounds; No Murmurs; No JVD, RRR Abdominal: NL Sounds; No Tenderness; No Distention Extremities: No Edema Skin: No Rash or Ulcers Neurological: Alert and Oriented x 3 Lines/Tubes/Other Access: Clean, Dry and Intact Peripheral IV Nutrition: Taking PO's Result Diagrams: 09/07/16 05:03 09/11/16 05:45 Additional Lab and Data: . Microbiology and Other Data: Microbiology 09/08/16 16:05 Nasal Screen MRSA (PCR)([facility]) - Final Nasal Mrsa Negative Assess/Plan/Problems-Billing Assessment: This is a 45 yo gentleman with depression and alcoholism who presented requesting assistance with detox with evidence of active withdrawal. - Patient Problems (1) Alcohol withdrawal Code(s): F10.239 - ALCOHOL DEPENDENCE WITH WITHDRAWAL, UNSPECIFIED Comment: WAM score 4-9 overnight and this morning Continue prn lorazepam per [facility] protocol Patient is interested in rehab when he has completed detox Social work following (2) Transaminitis Code(s): R74.0 - NONSPEC ELEV OF LEVELS OF TRANSAMNS & LACTIC ACID DEHYDRGNSE Comment: Secondary to alcohol abuse No signs of acute liver failure Improving (3) Gait disturbance Code(s): R26.9 - UNSPECIFIED ABNORMALITIES OF GAIT AND MOBILITY Comment: Improved Likely due to acute withdrawal and/or benzo use Could consider Wernicke's, he did receive IV thiamine at admission and continues on oral supplementation (4) Depression Status: Acute Code(s): F32.9 - MAJOR DEPRESSIVE DISORDER, SINGLE EPISODE, UNSPECIFIED Comment: Appreciate psychiatry consult Patient open to referral to further psychotherapy, as recommended by psychiatry. Continue sertraline. No suicidal ideations (5) Hypertension Code(s): I10 - ESSENTIAL (PRIMARY) HYPERTENSION Comment: Improved this morning Moderately hypertensive, likely due to acute withdrawal No home medications Will wait to treat hypertension specifically until he has completed withdrawal (6) DVT prophylaxis Code(s): [id number] - Comment: SQ heparin Status and Disposition: Continue inpatient care. Anticipate discharge to inpatient ETOH rehab center in 1-2 days.
[2016-09-11] MEDS: Potassium Chlor TAB* 20 MEQ TAB.ER PO SCH ×2 (09:05→22:22)
[2016-09-11] MEDS: Multivitamins/Minerals TAB PO SCH (09:05)
[2016-09-11] MEDS: Thiamine TAB* 100 MG TAB PO SCH (09:06)
[2016-09-11] MEDS: Sertraline* 25 MG TAB PO SCH (09:06)
[2016-09-11] MEDS: Folic Acid TAB* 1 MG PO SCH (09:06)
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
[2016-09-12] MEDS: Heparin VIAL(*) 5000 UNITS/ML VIAL (FIVE THOUSAND) SUBCUT SCH ×3 (06:42→21:31)
[2016-09-12 07:51] LABS: BUN/Creatinine Ratio 10.9 (8-20); Calcium 9.1 mg/dL (8.6-10.3); EGFR African American 175.5 (>60); EGFR Non-African American 136.5 (>60); Potassium 3.4 mmol/L (3.5-5.0)
--- NOTE | 2016-09-12 08:55 | PN ---
Subjective Date of Service: 09/12/16 Interval History: Patient seen and examined at bedside. He continues to report improvement in his symptoms and feels his ambulation is better, although he feels like he's going to fall whenever he turns his head to the side. No acute complaints, denies CP, SOB, abd pain, n/v, tremors, diaphoresis, MENON. Family History: Unchanged from Admission Social History: Unchanged from Admission Past Medical History: Unchanged from Admission Objective Active Medications: Acetaminophen (Tylenol Tab*) 650 mg PO Q4H PRN PRN Reason: PAIN Last Admin: 09/09/16 05:41 Dose: 650 mg Calcium Carbonate (Tums*) 500 mg PO BID PRN PRN Reason: HEARTBURN Last Admin: 09/06/16 22:08 Dose: 500 mg Folic Acid (Folvite Tab*) 1 mg PO DAILY [facility] Last Admin: 09/11/16 09:06 Dose: 1 mg Heparin Sodium (Porcine) (Heparin Vial(*)) 5,000 units SUBCUT Q8HR [facility] Last Admin: 09/12/16 06:42 Dose: 5,000 units Lorazepam (Ativan Tab(*)) 0 mg PO .PER WAM SCORE [facility] PRN Reason: Protocol Last Admin: 09/11/16 22:41 Dose: 1 mg Multivitamins/Minerals (Theragran/Minerals Tab*) 1 tab PO DAILY [facility] Last Admin: 09/11/16 09:05 Dose: 1 tab Ondansetron HCl (Zofran Inj*) 4 mg IV Q4H PRN PRN Reason: NAUSEA Last Admin: 09/07/16 15:32 Dose: 4 mg Sertraline HCl (Zoloft*) 50 mg PO DAILY [facility] Last Admin: 09/11/16 09:06 Dose: 50 mg Thiamine HCl (Vitamin B-1 Tab*) 100 mg PO DAILY [facility] Last Admin: 09/11/16 09:06 Dose: 100 mg Vital Signs 09/11/16 09/11/16 09/11/16 10:05 11:19 11:20 Temperature Pulse Rate 105 Respiratory 18 14 Rate Blood Pressure 141/95 (mmHg) O2 Sat by Pulse Oximetry 09/11/16 09/11/16 09/11/16 12:22 13:19 14:00 Temperature Pulse Rate 92 Respiratory 16 14 14 Rate Blood Pressure 136/97 (mmHg) O2 Sat by Pulse 97 Oximetry 09/11/16 09/11/16 09/11/16 14:25 16:05 16:22 Temperature 98.5 F Pulse Rate 98 115 Respiratory 18 14 Rate Blood Pressure 125/95 168/110 (mmHg) O2 Sat by Pulse 95 98 Oximetry 09/11/16 09/11/16 09/11/16 18:22 18:34 20:00 Temperature Pulse Rate 95 Respiratory 17 17 15 Rate Blood Pressure 138/85 (mmHg) O2 Sat by Pulse 96 Oximetry 09/11/16 09/11/16 09/11/16 20:45 22:00 22:23 Temperature Pulse Rate 106 105 Respiratory 17 15 18 Rate Blood Pressure 150/101 151/100 (mmHg) O2 Sat by Pulse 97 99 Oximetry 09/11/16 09/11/16 09/12/16 22:41 23:35 02:17 Temperature 98.0 F Pulse Rate 88 83 Respiratory 15 16 16 Rate Blood Pressure 135/94 144/94 (mmHg) O2 Sat by Pulse 95 98 Oximetry 09/12/16 09/12/16 04:20 08:04 Temperature 98.1 F 97.3 F Pulse Rate 97 104 Respiratory 16 18 Rate Blood Pressure 140/111 139/105 (mmHg) O2 Sat by Pulse 98 95 Oximetry Oxygen Devices in Use Now: None Appearance: Well appearing, male patient, OOB to chair, in NAD Eyes: PERRLA Ears/Nose/Mouth/Throat: Mucous Membranes Moist Respiratory: Symmetrical Chest Expansion and Respiratory Effort, Clear to Auscultation Cardiovascular: NL Sounds; No Murmurs; No JVD, RRR Abdominal: NL Sounds; No Tenderness; No Distention Extremities: No Edema Skin: No Rash or Ulcers Neurological: Alert and Oriented x 3, NL Muscle Strength and Tone, - - gait relatively steady, but some wobbling with position or directional changes Lines/Tubes/Other Access: Clean, Dry and Intact Peripheral IV Nutrition: Taking PO's Result Diagrams: 09/07/16 05:03 09/12/16 05:40 Additional Lab and Data: . Microbiology and Other Data: Microbiology 09/08/16 16:05 Nasal Screen MRSA (PCR)([facility]) - Final Nasal Mrsa Negative Assess/Plan/Problems-Billing Assessment: This is a 45 yo gentleman with depression and alcoholism who presented requesting assistance with detox with evidence of active withdrawal. - Patient Problems (1) Alcohol withdrawal Code(s): F10.239 - ALCOHOL DEPENDENCE WITH WITHDRAWAL, UNSPECIFIED Comment: WAM score 3-7 overnight and this morning Continue prn lorazepam per [facility] protocol Patient is interested in rehab when he has completed detox Social work following (2) Transaminitis Code(s): R74.0 - NONSPEC ELEV OF LEVELS OF TRANSAMNS & LACTIC ACID DEHYDRGNSE Comment: Secondary to alcohol abuse No signs of acute liver failure Improving (3) Gait disturbance Code(s): R26.9 - UNSPECIFIED ABNORMALITIES OF GAIT AND MOBILITY Comment: Improving, PT eval ordered Likely due to acute withdrawal and/or benzo use Could consider Wernicke's, he did receive IV thiamine at admission and continues on oral supplementation (4) Depression Status: Acute Code(s): F32.9 - MAJOR DEPRESSIVE DISORDER, SINGLE EPISODE, UNSPECIFIED Comment: Appreciate psychiatry consult Patient open to referral to further psychotherapy, as recommended by psychiatry. Continue sertraline. No suicidal ideations (5) Hypertension Code(s): I10 - ESSENTIAL (PRIMARY) HYPERTENSION Comment: Likely due to acute withdrawal Normotensive this morning No home medications Will wait to treat hypertension specifically until he has completed withdrawal (6) DVT prophylaxis Code(s): [id number] - Comment: SQ heparin Status and Disposition: Continue inpatient care. Anticipate discharge to inpatient ETOH rehab center, SW following.
[2016-09-12] MEDS: Folic Acid TAB* 1 MG PO SCH (10:35)
[2016-09-12] MEDS: Sertraline* 25 MG TAB PO SCH (10:35)
[2016-09-12] MEDS: Multivitamins/Minerals TAB PO SCH (10:35)
[2016-09-12] MEDS: Thiamine TAB* 100 MG TAB PO SCH (10:35)
[2016-09-12] MEDS: LORazepam TAB(*) 1 MG PO SCH ×2 (10:35→22:00)
[2016-09-12] MEDS ORDERED: Potassium Chlor TAB* 20 MEQ TAB.ER PO ONE (15:00)
[2016-09-12] MEDS: Potassium Chlor TAB* 20 MEQ TAB.ER PO SCH (21:29)
[2016-09-13] MEDS: Heparin VIAL(*) 5000 UNITS/ML VIAL (FIVE THOUSAND) SUBCUT SCH ×3 (07:09→21:47)
--- NOTE | 2016-09-13 08:22 | PN ---
Subjective Date of Service: 09/13/16 Interval History: Mr. Ordoñez reports continued balance issues but feels as if his other withdrawal symptoms are improving. He is very anxious and concerned about his discharge plan. He continues to desire inpatient rehab and has been making phone calls with guidance from [facility]. Family History: Unchanged from Admission Social History: Unchanged from Admission Past Medical History: Unchanged from Admission Objective Active Medications: Acetaminophen (Tylenol Tab*) 650 mg PO Q4H PRN PRN Reason: PAIN Last Admin: 09/09/16 05:41 Dose: 650 mg Calcium Carbonate (Tums*) 500 mg PO BID PRN PRN Reason: HEARTBURN Last Admin: 09/06/16 22:08 Dose: 500 mg Folic Acid (Folvite Tab*) 1 mg PO DAILY [facility] Last Admin: 09/12/16 10:35 Dose: 1 mg Heparin Sodium (Porcine) (Heparin Vial(*)) 5,000 units SUBCUT Q8HR [facility] Last Admin: 09/13/16 07:09 Dose: 5,000 units Lorazepam (Ativan Tab(*)) 0 mg PO .PER WAM SCORE [facility] PRN Reason: Protocol Last Admin: 09/12/16 22:00 Dose: 1 mg Multivitamins/Minerals (Theragran/Minerals Tab*) 1 tab PO DAILY [facility] Last Admin: 09/12/16 10:35 Dose: 1 tab Ondansetron HCl (Zofran Inj*) 4 mg IV Q4H PRN PRN Reason: NAUSEA Last Admin: 09/07/16 15:32 Dose: 4 mg Potassium Chloride (Klor Con Er Tab*) 20 meq PO BID [facility] Last Admin: 09/12/16 21:29 Dose: 20 meq Sertraline HCl (Zoloft*) 50 mg PO DAILY [facility] Last Admin: 09/12/16 10:35 Dose: 50 mg Thiamine HCl (Vitamin B-1 Tab*) 100 mg PO DAILY [facility] Last Admin: 09/12/16 10:35 Dose: 100 mg Vital Signs 09/12/16 09/12/16 09/12/16 10:00 10:35 12:35 Temperature Pulse Rate 103 Respiratory 16 16 Rate Blood Pressure 129/89 (mmHg) O2 Sat by Pulse Oximetry 09/12/16 09/12/16 09/12/16 12:40 14:20 14:36 Temperature 98.2 F 98.0 F 98.0 F Pulse Rate 103 99 92 Respiratory 16 20 20 Rate Blood Pressure 131/96 127/93 128/94 (mmHg) O2 Sat by Pulse 97 Oximetry 09/12/16 09/12/16 09/12/16 16:09 17:59 20:15 Temperature 98.1 F 97.7 F 98.0 F Pulse Rate 86 90 98 Respiratory 16 16 16 Rate Blood Pressure 135/90 126/91 125/77 (mmHg) O2 Sat by Pulse 98 96 97 Oximetry 09/12/16 09/12/16 09/12/16 21:35 21:47 22:00 Temperature Pulse Rate 100 Respiratory 16 20 20 Rate Blood Pressure 129/89 (mmHg) O2 Sat by Pulse 95 Oximetry 09/12/16 09/13/16 09/13/16 23:40 00:00 02:34 Temperature Pulse Rate 103 99 Respiratory 16 16 16 Rate Blood Pressure 131/84 146/95 (mmHg) O2 Sat by Pulse 97 97 Oximetry 09/13/16 09/13/16 04:00 08:12 Temperature 97.4 F 98.1 F Pulse Rate 94 107 Respiratory 16 18 Rate Blood Pressure 137/104 136/103 (mmHg) O2 Sat by Pulse 98 Oximetry Oxygen Devices in Use Now: None Appearance: Pleasant male patient, sitting up in bed, in NAD Eyes: PERRLA Ears/Nose/Mouth/Throat: Mucous Membranes Moist Neck: NL Appearance and Movements; NL JVP Respiratory: Symmetrical Chest Expansion and Respiratory Effort, Clear to Auscultation Cardiovascular: NL Sounds; No Murmurs; No JVD, RRR Abdominal: NL Sounds; No Tenderness; No Distention Extremities: No Edema Skin: No Rash or Ulcers Neurological: Alert and Oriented x 3, NL Muscle Strength and Tone Lines/Tubes/Other Access: Clean, Dry and Intact Peripheral IV Nutrition: Taking PO's Result Diagrams: 09/07/16 05:03 09/12/16 05:40 Additional Lab and Data: . Microbiology and Other Data: Microbiology 09/08/16 16:05 Nasal Screen MRSA (PCR)([facility]) - Final Nasal Mrsa Negative Assess/Plan/Problems-Billing Assessment: This is a 45 yo gentleman with depression and alcoholism who presented requesting assistance with detox with evidence of active withdrawal. - Patient Problems (1) Alcohol withdrawal Code(s): F10.239 - ALCOHOL DEPENDENCE WITH WITHDRAWAL, UNSPECIFIED Comment: WAM score improving, max score 6 this morning, but was 2 overnight Continue prn lorazepam per WAM protocol WAM protocol decreased from q2 to q4 Patient is interested in rehab when he has completed detox Social work following (2) Transaminitis Code(s): R74.0 - NONSPEC ELEV OF LEVELS OF TRANSAMNS & LACTIC ACID DEHYDRGNSE Comment: Secondary to alcohol abuse No signs of acute liver failure Improving (3) Gait disturbance Code(s): R26.9 - UNSPECIFIED ABNORMALITIES OF GAIT AND MOBILITY Comment: Improving, continue PT Likely due to acute withdrawal and/or benzo use Could consider Wernicke's, he did receive IV thiamine at admission and continues on oral supplementation (4) Depression Status: Acute Code(s): F32.9 - MAJOR DEPRESSIVE DISORDER, SINGLE EPISODE, UNSPECIFIED Comment: Appreciate psychiatry consult Patient open to referral to further psychotherapy, as recommended by psychiatry. Continue sertraline. No suicidal ideations (5) Hypertension Code(s): I10 - ESSENTIAL (PRIMARY) HYPERTENSION Comment: Likely due to acute withdrawal Improved, with occasional high BP, likely secondary to withdrawal and anxiety No home medications Will wait to treat hypertension specifically until he has completed withdrawal (6) DVT prophylaxis Code(s): [id number] - Comment: SQ heparin Status and Disposition: Continue inpatient care. Anticipate discharge to inpatient ETOH rehab center, SW following.
[2016-09-13] MEDS: LORazepam TAB(*) 1 MG PO SCH ×2 (08:57→20:24)
[2016-09-13] MEDS: Thiamine TAB* 100 MG TAB PO SCH (08:57)
[2016-09-13] MEDS: Sertraline* 25 MG TAB PO SCH (08:57)
[2016-09-13] MEDS: Potassium Chlor TAB* 20 MEQ TAB.ER PO SCH ×2 (08:57→20:25)
[2016-09-13] MEDS: Multivitamins/Minerals TAB PO SCH (08:57)
[2016-09-13] MEDS: Folic Acid TAB* 1 MG PO SCH (08:57)
[2016-09-14] MEDS: Heparin VIAL(*) 5000 UNITS/ML VIAL (FIVE THOUSAND) SUBCUT SCH ×3 (05:55→21:22)
[2016-09-14] MEDS: Multivitamins/Minerals TAB PO SCH (09:09)
[2016-09-14] MEDS: Potassium Chlor TAB* 20 MEQ TAB.ER PO SCH ×2 (09:09→21:22)
[2016-09-14] MEDS: Sertraline* 25 MG TAB PO SCH (09:10)
[2016-09-14] MEDS: Folic Acid TAB* 1 MG PO SCH (09:10)
[2016-09-14] MEDS: Thiamine TAB* 100 MG TAB PO SCH (09:10)
[2016-09-14] MEDS: LORazepam TAB(*) 1 MG PO SCH (09:18)
--- NOTE | 2016-09-14 11:05 | PN ---
Subjective Date of Service: 09/14/16 Interval History: Patient states he couldn't sleep last night because his anxiety was so high. He has an inpatient bed offer for Friday or Friday of next week. We discussed the need to wean him from lorazepam, which he is in agreement with. He denies any other complaints or concerns. Ambulation and balance improving. Family History: Unchanged from Admission Social History: Unchanged from Admission Past Medical History: Unchanged from Admission Objective Active Medications: Acetaminophen (Tylenol Tab*) 650 mg PO Q4H PRN PRN Reason: PAIN Last Admin: 09/09/16 05:41 Dose: 650 mg Calcium Carbonate (Tums*) 500 mg PO BID PRN PRN Reason: HEARTBURN Last Admin: 09/06/16 22:08 Dose: 500 mg Folic Acid (Folvite Tab*) 1 mg PO DAILY [facility] Last Admin: 09/14/16 09:10 Dose: 1 mg Heparin Sodium (Porcine) (Heparin Vial(*)) 5,000 units SUBCUT Q8HR [facility] Last Admin: 09/14/16 05:55 Dose: 5,000 units Lorazepam (Ativan Tab(*)) 0 mg PO .PER WAM SCORE [facility] PRN Reason: Protocol Last Admin: 09/14/16 09:18 Dose: 1 mg Multivitamins/Minerals (Theragran/Minerals Tab*) 1 tab PO DAILY [facility] Last Admin: 09/14/16 09:09 Dose: 1 tab Ondansetron HCl (Zofran Inj*) 4 mg IV Q4H PRN PRN Reason: NAUSEA Last Admin: 09/07/16 15:32 Dose: 4 mg Potassium Chloride (Klor Con Er Tab*) 20 meq PO BID [facility] Last Admin: 09/14/16 09:09 Dose: 20 meq Sertraline HCl (Zoloft*) 50 mg PO DAILY [facility] Last Admin: 09/14/16 09:10 Dose: 50 mg Thiamine HCl (Vitamin B-1 Tab*) 100 mg PO DAILY [facility] Last Admin: 09/14/16 09:10 Dose: 100 mg Vital Signs 09/13/16 09/13/16 09/13/16 12:09 15:30 20:13 Temperature 98.6 F 98.8 F 98.4 F Pulse Rate 96 95 92 Respiratory 18 16 16 Rate Blood Pressure 136/91 124/92 125/88 (mmHg) O2 Sat by Pulse 98 98 98 Oximetry 09/13/16 09/13/16 09/13/16 20:22 20:24 22:24 Temperature Pulse Rate Respiratory 16 16 16 Rate Blood Pressure (mmHg) O2 Sat by Pulse Oximetry 09/14/16 09/14/16 09/14/16 00:00 00:06 04:04 Temperature 98 F 98.5 F Pulse Rate 105 102 Respiratory 16 16 16 Rate Blood Pressure 125/83 139/85 (mmHg) O2 Sat by Pulse 95 99 Oximetry 09/14/16 09/14/16 09/14/16 08:00 08:16 09:18 Temperature 98.2 F Pulse Rate 102 Respiratory 16 17 16 Rate Blood Pressure 124/78 (mmHg) O2 Sat by Pulse 96 Oximetry Oxygen Devices in Use Now: None Appearance: Male patient, sitting in room, NAD Eyes: PERRLA Ears/Nose/Mouth/Throat: Mucous Membranes Moist Neck: NL Appearance and Movements; NL JVP Respiratory: Symmetrical Chest Expansion and Respiratory Effort, Clear to Auscultation Cardiovascular: NL Sounds; No Murmurs; No JVD, RRR Abdominal: NL Sounds; No Tenderness; No Distention Extremities: No Edema Skin: No Rash or Ulcers Neurological: Alert and Oriented x 3 Lines/Tubes/Other Access: Clean, Dry and Intact Peripheral IV Nutrition: Taking PO's Result Diagrams: 09/07/16 05:03 09/12/16 05:40 Additional Lab and Data: . Microbiology and Other Data: Microbiology 09/08/16 16:05 Nasal Screen MRSA (PCR)([facility]AS) - Final Nasal Mrsa Negative Assess/Plan/Problems-Billing Assessment: This is a 45 yo gentleman with depression and alcoholism who presented requesting assistance with detox with evidence of active withdrawal. - Patient Problems (1) Alcohol withdrawal Code(s): F10.239 - ALCOHOL DEPENDENCE WITH WITHDRAWAL, UNSPECIFIED Comment: [facility] 3-4 Continue prn lorazepam per [facility] protocol If patient continues to score low, will move from q4 to q8 Plan for d/c Friday or Friday to inpatient rehab Social work following (2) Transaminitis Code(s): R74.0 - NONSPEC ELEV OF LEVELS OF TRANSAMNS & LACTIC ACID DEHYDRGNSE Comment: Secondary to alcohol abuse No signs of acute liver failure Improving (3) Gait disturbance Code(s): R26.9 - UNSPECIFIED ABNORMALITIES OF GAIT AND MOBILITY Comment: Improving, continue PT Likely due to acute withdrawal and/or benzo use Could consider Wernicke's, he did receive IV thiamine at admission and continues on oral supplementation (4) Depression Status: Acute Code(s): F32.9 - MAJOR DEPRESSIVE DISORDER, SINGLE EPISODE, UNSPECIFIED Comment: Appreciate psychiatry consult Patient open to referral to further psychotherapy, as recommended by psychiatry. Continue sertraline. No suicidal ideations (5) Hypertension Code(s): I10 - ESSENTIAL (PRIMARY) HYPERTENSION Comment: Likely due to acute withdrawal Improved, with occasional high BP, likely secondary to withdrawal and anxiety No home medications Will wait to treat hypertension specifically until he has completed withdrawal (6) DVT prophylaxis Code(s): [id number] - Comment: SQ heparin Status and Disposition: Continue inpatient care. Anticipate discharge to inpatient ETOH rehab center Friday or Friday.
[2016-09-14] MEDS ORDERED: Zolpidem TAB* 5 MG PO PRN (21:00)
[2016-09-14] MEDS: QUEtiapine TAB* 25 MG PO PRN (21:22)
[2016-09-14] MEDS: Melatonin (NF) ** ENTER STRENGTH IN LABEL DIRECTIONS PO SCH (22:25)
[2016-09-15] MEDS: Heparin VIAL(*) 5000 UNITS/ML VIAL (FIVE THOUSAND) SUBCUT SCH ×3 (05:41→21:10)
[2016-09-15] MEDS: Thiamine TAB* 100 MG TAB PO SCH (08:56)
[2016-09-15] MEDS: Multivitamins/Minerals TAB PO SCH (08:56)
[2016-09-15] MEDS: Potassium Chlor TAB* 20 MEQ TAB.ER PO SCH ×2 (08:56→21:10)
[2016-09-15] MEDS: Sertraline* 25 MG TAB PO SCH (08:56)
[2016-09-15] MEDS: Folic Acid TAB* 1 MG PO SCH (08:56)
[2016-09-15 08:57] LABS: Albumin 3.7 g/dL (3.2-5.2); BUN/Creatinine Ratio 11.8 (8-20); Calcium 9.3 mg/dL (8.6-10.3); EGFR Non-African American 111.9 (>60); Globulin 2.8 g/dL (2-4); Total Bilirubin 1.2 mg/dL (0.2-1.0); Total Protein 6.5 g/dL (6.4-8.9)
--- NOTE | 2016-09-15 14:13 | PN ---
Subjective Date of Service: 09/15/16 Interval History: Mr. Ordoñez reports feeling okay. Continues to express anxiety, states he has used Atarax in the past and has it at home. Denies CP, SOB, abd pain, n/v. No acute concerns at this time. Family History: Unchanged from Admission Social History: Unchanged from Admission Past Medical History: Unchanged from Admission Objective Active Medications: Acetaminophen (Tylenol Tab*) 650 mg PO Q4H PRN PRN Reason: PAIN Last Admin: 09/09/16 05:41 Dose: 650 mg Calcium Carbonate (Tums*) 500 mg PO BID PRN PRN Reason: HEARTBURN Last Admin: 09/06/16 22:08 Dose: 500 mg Folic Acid (Folvite Tab*) 1 mg PO DAILY [facility] Last Admin: 09/15/16 08:56 Dose: 1 mg Heparin Sodium (Porcine) (Heparin Vial(*)) 5,000 units SUBCUT Q8HR [facility] Last Admin: 09/15/16 13:37 Dose: 5,000 units Hydroxyzine HCl (Atarax Tab*) 50 mg PO Q6H PRN PRN Reason: ANXIETY Melatonin (Melatonin (Nf)) 1 tab PO BEDTIME [facility] Last Admin: 09/14/16 22:25 Dose: Not Given Multivitamins/Minerals (Theragran/Minerals Tab*) 1 tab PO DAILY [facility] Last Admin: 09/15/16 08:56 Dose: 1 tab Ondansetron HCl (Zofran Inj*) 4 mg IV Q4H PRN PRN Reason: NAUSEA Last Admin: 09/07/16 15:32 Dose: 4 mg Potassium Chloride (Klor Con Er Tab*) 20 meq PO BID [facility] Last Admin: 09/15/16 08:56 Dose: 20 meq Quetiapine Fumarate (Seroquel Tab*) 25 mg PO BEDTIME PRN PRN Reason: AGITATION/ANXIETY/INSOMNIA Last Admin: 09/14/16 21:22 Dose: 25 mg Sertraline HCl (Zoloft*) 50 mg PO DAILY [facility] Last Admin: 09/15/16 08:56 Dose: 50 mg Thiamine HCl (Vitamin B-1 Tab*) 100 mg PO DAILY [facility] Last Admin: 09/15/16 08:56 Dose: 100 mg Vital Signs 09/14/16 09/14/16 09/14/16 16:05 19:52 20:00 Temperature 98.5 F 98.6 F Pulse Rate 88 108 Respiratory 16 Rate Blood Pressure 118/71 135/63 (mmHg) O2 Sat by Pulse 98 97 Oximetry 09/14/16 09/15/16 09/15/16 23:32 06:34 08:00 Temperature 98.6 F 98.5 F Pulse Rate 97 86 Respiratory 16 16 16 Rate Blood Pressure 116/73 109/75 (mmHg) O2 Sat by Pulse 96 98 Oximetry 09/15/16 11:49 Temperature 97.8 F Pulse Rate 104 Respiratory 16 Rate Blood Pressure 142/80 (mmHg) O2 Sat by Pulse 94 Oximetry Oxygen Devices in Use Now: None Appearance: Male patient, sitting on edge of bed, NAD Eyes: PERRLA Ears/Nose/Mouth/Throat: Mucous Membranes Moist Neck: NL Appearance and Movements; NL JVP Respiratory: Symmetrical Chest Expansion and Respiratory Effort, Clear to Auscultation Cardiovascular: NL Sounds; No Murmurs; No JVD, RRR Abdominal: NL Sounds; No Tenderness; No Distention Extremities: No Edema Neurological: Alert and Oriented x 3 Lines/Tubes/Other Access: Clean, Dry and Intact Peripheral IV Nutrition: Taking PO's Result Diagrams: 09/07/16 05:03 09/15/16 08:13 Additional Lab and Data: . Microbiology and Other Data: Microbiology 09/08/16 16:05 Nasal Screen MRSA (PCR)([facility]) - Final Nasal Mrsa Negative Assess/Plan/Problems-Billing Assessment: This is a 45 yo gentleman with depression and alcoholism who presented requesting assistance with detox with evidence of active withdrawal. - Patient Problems (1) Alcohol withdrawal Code(s): F10.239 - ALCOHOL DEPENDENCE WITH WITHDRAWAL, UNSPECIFIED Comment: D/c [facility] protocol today Plan for d/c Friday to inpatient rehab Social work following (2) Transaminitis Code(s): R74.0 - NONSPEC ELEV OF LEVELS OF TRANSAMNS & LACTIC ACID DEHYDRGNSE Comment: Secondary to alcohol abuse No signs of acute liver failure Improving (3) Gait disturbance Code(s): R26.9 - UNSPECIFIED ABNORMALITIES OF GAIT AND MOBILITY Comment: Improving, continue PT Likely due to acute withdrawal and/or benzo use ? Wernicke's, he did receive IV thiamine at admission and continues on oral supplementation (4) Depression Status: Acute Code(s): F32.9 - MAJOR DEPRESSIVE DISORDER, SINGLE EPISODE, UNSPECIFIED Comment: Appreciate psychiatry consult Patient open to referral to further psychotherapy, as recommended by psychiatry. Continue sertraline. No suicidal ideations (5) Hypertension Code(s): I10 - ESSENTIAL (PRIMARY) HYPERTENSION Comment: Likely due to acute withdrawal Improved, with occasional high BP, likely secondary to withdrawal and anxiety No home medications (6) Anxiety Code(s): F41.9 - ANXIETY DISORDER, UNSPECIFIED Comment: Patient no longer receiving lorazepam via [facility] protocol Start hydroxyzine PRN In discussion with psych, may try Seroquel at bedtime to help with anxiety and insomnia (7) DVT prophylaxis Code(s): [id number] - Comment: SQ heparin Status and Disposition: Continue inpatient care. Anticipate discharge to inpatient ETOH rehab center Friday.
[2016-09-15] MEDS: QUEtiapine TAB* 25 MG PO PRN (21:10)
[2016-09-15] MEDS: Melatonin (NF) ** ENTER STRENGTH IN LABEL DIRECTIONS PO SCH (21:10)
[2016-09-15] MEDS: Acetaminophen TAB* 325 MG PO PRN (21:15)
[2016-09-15] MEDS: hydrOXYzine HCL TAB* 50 MG PO PRN (21:16)
[2016-09-16] MEDS: Heparin VIAL(*) 5000 UNITS/ML VIAL (FIVE THOUSAND) SUBCUT SCH ×3 (05:42→21:56)
[2016-09-16] MEDS: hydrOXYzine HCL TAB* 50 MG PO PRN ×3 (08:44→22:24)
[2016-09-16] MEDS: Sertraline* 25 MG TAB PO SCH (08:44)
[2016-09-16] MEDS: Folic Acid TAB* 1 MG PO SCH (08:45)
[2016-09-16] MEDS: Multivitamins/Minerals TAB PO SCH (08:45)
[2016-09-16] MEDS: Potassium Chlor TAB* 20 MEQ TAB.ER PO SCH ×2 (08:45→21:53)
[2016-09-16] MEDS: Thiamine TAB* 100 MG TAB PO SCH (08:45)
--- NOTE | 2016-09-16 11:49 | PN ---
Subjective Date of Service: 09/16/16 Interval History: Patient is doing quite well. No concerns. Plans for discharge to rehab tomorrow. Objective Active Medications: Acetaminophen (Tylenol Tab*) 650 mg PO Q4H PRN PRN Reason: PAIN Last Admin: 09/15/16 21:15 Dose: 650 mg Calcium Carbonate (Tums*) 500 mg PO BID PRN PRN Reason: HEARTBURN Last Admin: 09/06/16 22:08 Dose: 500 mg Folic Acid (Folvite Tab*) [address] [facility] Last Admin: 09/16/16 08:45 Dose: 1 mg Heparin Sodium (Porcine) (Heparin Vial(*)) 5,[address] [facility] Last Admin: 09/16/16 05:42 Dose: 5,000 units Hydroxyzine HCl (Atarax Tab*) 50 mg PO Q6H PRN PRN Reason: ANXIETY Last Admin: 09/16/16 08:44 Dose: 50 mg Melatonin (Melatonin (Nf)) [address] [facility] Last Admin: 09/15/16 21:10 Dose: 1 tab Multivitamins/Minerals (Theragran/Minerals Tab*) [address] [facility] Last Admin: 09/16/16 08:45 Dose: 1 tab Ondansetron HCl (Zofran Inj*) 4 mg IV Q4H PRN PRN Reason: NAUSEA Last Admin: 09/07/16 15:32 Dose: 4 mg Potassium Chloride (Klor Con Er Tab*) [address] [facility] Last Admin: 09/16/16 08:45 Dose: 20 meq Quetiapine Fumarate (Seroquel Tab*) 25 mg PO BEDTIME PRN PRN Reason: AGITATION/ANXIETY/INSOMNIA Last Admin: 09/15/16 21:10 Dose: 25 mg Sertraline HCl (Zoloft*) [address] [facility] Last Admin: 09/16/16 08:44 Dose: 50 mg Thiamine HCl (Vitamin B-1 Tab*) [address] [facility] Last Admin: 09/16/16 08:45 Dose: 100 mg Vital Signs: Temp Pulse Resp BP Pulse Ox 97.9 F 94 18 114/65 96 09/16/16 07:28 09/16/16 07:28 09/16/16 08:30 09/16/16 07:28 09/16/16 07:28 Oxygen Devices in Use Now: None Appearance: Well appearing, in NAD Neck: NL Appearance and Movements; NL JVP Respiratory: Symmetrical Chest Expansion and Respiratory Effort, Clear to Auscultation Cardiovascular: NL Sounds; No Murmurs; No JVD, RRR Abdominal: NL Sounds; No Tenderness; No Distention Extremities: No Edema Skin: No Rash or Ulcers Neurological: Alert and Oriented x 3 Result Diagrams: 09/07/16 05:03 09/15/16 08:13 Additional Lab and Data: . Microbiology and Other Data: Microbiology 09/08/16 16:05 Nasal Screen MRSA (PCR)([facility]AS) - Final Nasal Mrsa Negative Assess/Plan/Problems-Billing Assessment: This is a 45 yo gentleman with depression and alcoholism who presented requesting assistance with detox with evidence of active withdrawal. - Patient Problems (1) Alcohol withdrawal Comment: [facility] protocol completed Plan for d/c tomorrow to inpatient rehab Social work following (2) Transaminitis Comment: Secondary to alcohol abuse No signs of acute liver failure (3) Gait disturbance Comment: Resolved Cont thiamine/folate/MVT (4) Depression Comment: Appreciate psychiatry consult Patient open to referral to further psychotherapy, as recommended by psychiatry. Continue sertraline. No suicidal ideations (5) Hypertension Comment: Likely due to acute withdrawal Improved, with occasional high BP, likely secondary to withdrawal and anxiety No home medications Status and Disposition: Continue inpatient care. Anticipate discharge to inpatient ETOH rehab center tomorrow.
[2016-09-16] MEDS: Acetaminophen TAB* 325 MG PO PRN (17:19)
[2016-09-16] MEDS: QUEtiapine TAB* 25 MG PO PRN (21:54)
[2016-09-16] MEDS: Melatonin (NF) ** ENTER STRENGTH IN LABEL DIRECTIONS PO SCH (21:56)
--- NOTE | 2016-09-17 02:29 | DS ---
DISCHARGE SUMMARY: DATE OF ADMISSION: 09/06/16 DATE OF DISCHARGE: 09/17/16 PRIMARY CARE PROVIDER: Dr. Claudette Gutierrez. DISCHARGING PROVIDER: ABY Jain SUPERVISING PHYSICIAN: Alta Harrington MD.* (DICTATED BY ABY JAIN) PRIMARY DISCHARGE DIAGNOSES: 1. Delirium tremens. 2. Transaminitis secondary to alcohol abuse - recommend followup. 3. Gait disturbance - resolved. 4. Depression. 5. Hypertension. 6. Anxiety. DISCHARGE MEDICATIONS: 1. Folic acid 1 mg p.o. daily. 2. Multivitamin 1 tablet p.o. daily. 3. Seroquel 25 mg p.o. at bedtime. 4. Zoloft 50 mg p.o. daily. 5. Thiamine 100 mg p.o. daily. 6. Hydroxyzine 50 mg p.o. q.6 hours as needed for anxiety. MEDICATION CHANGES: 1. Start folic acid. 2. Start multivitamin. 3. Start Seroquel. 4. Start thiamine. 5. Start hydroxyzine. HOSPITAL IMAGIN. CT of the brain, 09/06/16, demonstrates no acute pathology. 2. CT of the cervical spine, 09/06/16, shows degenerative disk disease and osteoarthritis, but no acute injury. 3. Chest x-ray, 09/06/16, shows no acute process. 4. EKG shows sinus tachycardia. No ischemic changes. HOSPITAL COURSE: This is a 45-year-old gentleman with history of depression who presented to the hospital in alcohol withdrawal, requesting detox. The patient actually fell when entering the hospital initiating a clinical assessment team alert. It appeared that this was a mechanical fall. He had tripped on, rather lost his balance and fell onto his face. The patient was initially evaluated in the emergency department, which demonstrated mild thrombocytopenia with a platelet count of 120,000, but otherwise normal CBC. Comprehensive metabolic panel significant for hypomagnesemia, mildly elevated total bilirubin and elevated AST and ALT consistent with alcohol abuse. His initial lactic acid was also elevated at 2.9. Imaging of his head and neck demonstrated no acute process. The patient was subsequently admitted to medical service for alcohol withdrawal. The patient's withdrawal symptoms became quite severe and he required quite high doses of benzodiazepines. He became minimally responsive to high doses of IV benzos and was subsequently transferred to the ICU and was started on Precedex drip for mild sedation for approximately 24 hours at which point he was transferred back to the medical floor to complete his withdrawal process via [facility] protocol. The patient did not sustain a seizure, but did have severe auditory and visual hallucinations and was severely agitated as well as had significant gait disturbance with frequent falls during his withdrawal process. The patient's difficulty with balance resolved after he completed withdrawal. He was evaluated by Psychiatry due to his history of depression, who recommended continuing his Zoloft and continue his support to help to maintain his sobriety. The patient did not require psychiatric admission. DISPOSITION: The patient is being discharged from the hospital to inpatient alcohol rehab services at [facility] with an anticipated 30-day length of stay. Recommend continuing medications as outlined above as the patient appears to be doing quite well with this combination of medications. The patient will require close followup with his primary care provider and outpatient mental health following discharge from inpatient rehab. Of note, recommend repeating a CBC and comprehensive metabolic panel to ensure resolution of his transaminitis and thrombocytopenia after sobriety for several weeks. ABY JAIN CC: Claudette Gutierrez MD * [id number]/[facility] #: [id number] [place]
[2016-09-17] MEDS: Acetaminophen TAB* 325 MG PO PRN (06:17)
[2016-09-17] MEDS: hydrOXYzine HCL TAB* 50 MG PO PRN (06:18)
[2016-09-17] MEDS: Heparin VIAL(*) 5000 UNITS/ML VIAL (FIVE THOUSAND) SUBCUT SCH (06:19)
[2016-09-17] MEDS: Potassium Chlor TAB* 20 MEQ TAB.ER PO SCH (07:11)
[2016-09-17] MEDS: Multivitamins/Minerals TAB PO SCH (07:11)
[2016-09-17] MEDS: Thiamine TAB* 100 MG TAB PO SCH (07:11)
[2016-09-17] MEDS: Sertraline* 25 MG TAB PO SCH (07:11)
[2016-09-17] MEDS: Folic Acid TAB* 1 MG PO SCH (07:11)
[2016-09-17 07:49] VITALS: BP 131/93
== END 2016-09-17 08:00 | DRG 775 ==
LOC: ED 11:02 → MEDTELE 14:19 → OBSVTOIN 09-07 10:03 → MEDTELE 09-08 14:55 → ICU 09-08 16:21 → MED 09-09 16:06
PROVIDERS: ADMIT Internal Medicine; ATTEND Internal Medicine
PROC: HZ2ZZZZ Detoxification Services for Substance Abuse Treatment (ICD-10-PCS; principal; 2016-09-07)
DX: F10.232 Alcohol dependence with withdrawal with perceptual disturbance (principal); F10.221 Alcohol dependence with intoxication delirium; E87.2 Acidosis; T51.0X1A Toxic effect of ethanol, accidental (unintentional), initial encounter; Y90.8 Blood alcohol level of 240 mg/100 ml or more; F32.9 Major depressive disorder, single episode, unspecified; R74.0 Nonspecific elevation of levels of transaminase and lactic acid dehydrogenase [LDH]; F41.9 Anxiety disorder, unspecified; E83.42 Hypomagnesemia; I10 Essential (primary) hypertension; G25.2 Other specified forms of tremor; W18.39XA Other fall on same level, initial encounter; Y92.238 Other place in hospital as the place of occurrence of the external cause; Z79.1 Long term (current) use of non-steroidal anti-inflammatories (NSAID); Z79.899 Other long term (current) drug therapy; Z82.49 Family history of ischemic heart disease and other diseases of the circulatory system; Z83.3 Family history of diabetes mellitus; Z80.9 Family history of malignant neoplasm, unspecified; Z81.1 Family history of alcohol abuse and dependence; Z87.891 Personal history of nicotine dependence; H90.41 Sensorineural hearing loss, unilateral, right ear, with unrestricted hearing on the contralateral side; M50.322 Other cervical disc degeneration at C5-C6 level; M47.9 Spondylosis, unspecified
CPT/HCPCS: 36415; 70450; 71010; 72125; 80048; 80053; 80307; 80320; 81003; 81015; 82150; 82550; 83036; 83605; 83735; 84484; 85025; 85610; 87641; 93005; A9270-GY; G0378; G0480; J1644; J2060; J2405; J3360

== ENCOUNTER 2018-12-29 11:21 | Emergency (ER) | payer SELFPAY ==
[2018-12-29 11:52] LABS: ABS Eosinophils 0.1 10^3/ul (0-0.6); ABS Lymphocytes 2.2 10^3/ul (1.0-4.8); ABS Monocytes 0.6 10^3/ul (0-0.8); ABS Neutrophils 4.3 10^3/ul (1.5-7.7); Eosinophil % 2.1 %; Hematocrit 45 % (42-52); Hemoglobin 15.1 g/dL (14.0-18.0); Lymphocyte % 30.3 %; Mean Corpuscular HGB Conc 34 g/dL (31-36); Mean Corpuscular Hemoglobin 29 pg (27-31); Mean Corpuscular Volume 85 fL (80-94); Mean Platelet Volume 8.3 fL (7.4-10.4); Nucleated Red Blood Cells % 0.1; Platelet Count 267 10^3/uL (150-450); Red Blood Count 5.26 10^6 /uL (4.18-5.48); Red Cell Distribution Width 13 % (10-15); White Blood Count 7.2 10^3/uL (3.5-10.8)
[2018-12-29 11:58] LABS: INR 1.01 (0.82-1.09)
[2018-12-29 12:03] LABS: Albumin 4.9 g/dL (3.2-5.2); Albumin/Globulin Ratio 1.7 (1-3); BUN/Creatinine Ratio 27.8 (8-20); Calcium 9.7 mg/dL (8.6-10.3); EGFR African American 100.8 (>60); EGFR Non-African American 83.3 (>60); Globulin 2.9 g/dL (2-4); Potassium 3.8 mmol/L (3.5-5.0); Total Bilirubin 0.8 mg/dL (0.2-1.0); Total Protein 7.8 g/dL (6.4-8.9)
--- NOTE | 2018-12-29 13:26 | ED ---
Dizziness - HPI Summary HPI Summary: The patient is a 48 y/o M presenting to [facility] accompanied by family with a chief complaint of sudden onset dizziness today at 1000. He reports that he had been sitting at work when the dizziness came on. He then had some body tremors and chills and had difficulty standing up at first. Once the dizziness subsided some, he came to the ED. He denies any tinnitus, changes in hearing or vision, or numbness or weakness in the extremities. The dizziness is mild at rest and is aggravated by movement. He is able to stand with the dizziness, but it worsens the symptoms. He has had a similar episode of this about a month ago that lasted for 15 minutes, but he states he had clogged ears at the time. He notes he went mountain biking last night but denies any sensation of dehydration or change in appetite. PMHx: ear surgery. FHx: HTN, DM, cardiac disease. Nonsmoker, daily EtOH, marijuana use. Medications reviewed. Allergies reviewed. - History Of Current Complaint Chief Complaint: EDShortnessOfBreath Stated Complaint: DIZZY/CONFUSED PER PT Time Seen by Provider: 12/29/18 13:16 Hx Obtained From: Patient Onset/Duration: Still Present, Suddenly Timing: Hours - started at 1000 Severity Initially: Moderate Severity Currently: Moderate Character: Dizzy Aggravating Factor(s): Supine To Erect, Change In Head Position Alleviating Factor(s): Rest Associated Signs And Symptoms: Positive: Chills - with body tremors, Other: - NEGATIVE: auditory changes, dehydration. Negative: Tinnitus, Visual Changes, Decreased Oral Intake - Allergies/Home Medications Allergies/Adverse Reactions: Allergies Allergy/AdvReac Type Severity Reaction Status Date / Time No Known Allergies Allergy Verified 09/11/12 12:51 PMH/Surg Hx/FS Hx/Imm Hx Endocrine/Hematology History: Denies: Hx Diabetes, Hx Thyroid Disease Cardiovascular History: Denies: Hx Hypertension Respiratory History: Denies: Hx Asthma, Hx Chronic Obstructive Pulmonary Disease (COPD) GI History: Denies: Hx Ulcer Sensory History: Reports: Hx Contacts or Glasses - reading glasses Denies: Hx Hearing Aid, Other Sensory Impairments Opthamlomology History: Reports: Hx Contacts or Glasses - reading glasses Denies: Other Sensory Impairments - Surgical History Surgical History: Yes Surgery Procedure, Year, and Place: ear surgery Infectious Disease History: No Infectious Disease History: Denies: Hx Hepatitis, Hx Human Immunodeficiency Virus (HIV), Traveled Outside the [place] in Last 30 Days - Family History Known Family History: Positive: Cardiac Disease, Hypertension, Diabetes - Social History Alcohol Use: Daily Alcohol Amount: pt reports drinking all day everyday past several years Hx Substance Use: Yes Substance Use Type: Reports: Marijuana Hx Tobacco Use: Yes Smoking Status (MU): Never Smoked Tobacco Review of Systems Positive: Chills - with body tremors Positive: Other - NEGATIVE: vision changes Positive: Other - NEGATIVE: hearing changes, tinnitus Neurological: Other - dizziness Negative: Weakness, Numbness All Other Systems Reviewed And Are Negative: Yes Physical Exam - Summary Physical Exam Summary: Constitutional: Well-developed, Well-nourished, Alert. (-) Distressed Skin: Warm, Dry HENT: Normocephalic; Atraumatic Eyes: Conjunctiva normal Neck: Musculoskeletal ROM normal neck. (-) JVD, (-) Stridor, (-) Tracheal deviation Cardio: Rhythm regular, rate normal, Heart sounds normal; Intact distal pulses; The pedal pulses are 2+ and symmetric. Radial pulses are 2+ and symmetric. (-) Murmur Pulmonary/Chest wall: Effort normal. (-) Respiratory distress, (-) Wheezes, (-) Rales Abd: Soft. (-) Tenderness, (-) Distension, (-) Guarding, (-) Rebound Musculoskeletal: (-) Edema Lymph: (-) Cervical adenopathy Neuro: Alert, Oriented x3, Strength normal, Cranial nerves II-XII are grossly intact. (-) Dysmetria, (+) Lateral Nystagmus to left, (-) Ataxia by finger to nose testing, (-) Sensory deficit. Ronceverte Hallpike did not help. Psych: Mood and affect Normal Triage Information Reviewed: Yes Vital Signs On Initial Exam: Initial Vitals Temp Pulse Resp BP Pulse Ox 98.2 F 103 18 166/84 99 12/29/18 11:22 12/29/18 11:22 12/29/18 11:22 12/29/18 11:22 12/29/18 11:22 Vital Signs Reviewed: Yes Diagnostics - Vital Signs Vital Signs Temp Pulse Resp BP Pulse Ox 12/29/18 11:22 98.2 F 103 18 166/84 99 - Laboratory Lab Results: Lab Results 12/29/18 12/29/18 12/29/18 Range/Units 11:38 11:38 11:38 WBC 7.2 (3.5-10.8) 10^3/uL RBC 5.26 (4.18-5.48) 10^6 /uL Hgb 15.1 (14.0-18.0) g/dL Hct 45 (42-52) % MCV 85 (80-94) fL MCH 29 (27-31) pg MCHC 34 (31-36) g/dL RDW 13 (10-15) % Plt Count 267 (150-450) 10^3/uL MPV 8.3 (7.4-10.4) fL Neut % (Auto) 59.2 % Lymph % (Auto) 30.3 % [place] % (Auto) 7.9 % Eos % (Auto) 2.1 % Baso % (Auto) 0.5 % Absolute Neuts (auto) 4.3 (1.5-7.7) 10^3/ul Absolute Lymphs (auto) 2.2 (1.0-4.8) 10^3/ul Absolute Monos (auto) 0.6 (0-0.8) 10^3/ul Absolute Eos (auto) 0.1 (0-0.6) 10^3/ul Absolute Basos (auto) 0.0 (0-0.2) 10^3/ul Absolute Nucleated RBC 0.0 10^3/ul Nucleated RBC % 0.1 INR (Anticoag Therapy) 1.01 (0.82-1.09) Sodium 139 (135-145) mmol/L Potassium 3.8 (3.5-5.0) mmol/L Chloride 102 (101-111) mmol/L Carbon Dioxide 25 (22-32) mmol/L Anion Gap 12 H (2-11) mmol/L BUN 27 H (6-24) mg/dL Creatinine 0.97 (0.67-1.17) mg/dL Est GFR ( Amer) 100.8 (>60) Est GFR (Non-Af Amer) 83.3 (>60) BUN/Creatinine Ratio 27.8 H (8-20) Glucose 152 H (70-100) mg/dL Calcium 9.7 (8.6-10.3) mg/dL Total Bilirubin 0.80 (0.2-1.0) mg/dL AST 36 (13-39) U/L ALT 31 (7-52) U/L Alkaline Phosphatase 80 (34-104) U/L Troponin I 0.00 (<0.04) ng/mL Total Protein 7.8 (6.4-8.9) g/dL Albumin 4.9 (3.2-5.2) g/dL Globulin 2.9 (2-4) g/dL Albumin/Globulin Ratio 1.7 (1-3) Result Diagrams: 12/29/18 11:38 12/29/18 11:38 Lab Statement: Any lab studies that have been ordered have been reviewed, and results considered in the medical decision making process. - EKG 1125 Cardiac Rate: NL - 97 bpm EKG Rhythm: Sinus Rhythm Summary of EKG Findings: NSR at 97 bpm. Re-Evaluation - Re-Evaluation First Eval Re-Evaluation Time: 14:08 Change: Improved Comment: The patient is feeling slightly better. He is sitting at bedside. Second Eval Re-Evaluation Time: 14:45 Comment: We discussed results and discharge home. Dizzy Course/Dx - Course Course Of Treatment: Patient is here with symptoms consistent with peripheral vertigo. Patient is overall well-appearing with no neurologic symptoms outside of nystagmus. Patient was given meclizine and IV Ativan with improvement in his symptoms. Patient had a negative cardiac workup. Patient did not need evaluation for CVA at this time. - Diagnoses Provider Diagnoses: Peripheral vertigo Discharge - Sign-Out/Discharge Documenting (check all that apply): Patient Departure - Patient will be dsicharged home. Patient Received Moderate/Deep Sedation with Procedure: No - Discharge Plan Condition: Good Disposition: HOME Prescriptions: Meclizine TAB* [Antivert 12.5 TAB*] 25 mg PO TID PRN #20 tab PRN Reason: Dizziness Patient Education Materials: Vertigo (DC) Referrals: Makeda Patel MD [Primary Care Provider] - 3 Days [facility] [place] [facility] [Outside] - 3 Days Additional Instructions: Please follow up with your primary care provider in 2-3 days. Return to the emergency department for any weakness, numbness, difficulty speaking, changes in vision, or worsening symptoms. - Billing Disposition and Condition Condition: GOOD Disposition: Home - Attestation Statements Document Initiated by Yobaniibkalee: Yes Documenting Scribe: Katja Herrera Provider For Whom Mirian is Documenting (Include Credential): Dr. Pancho Medina MD Scribe Attestation: I, Katja Herrera, scribed for Dr. Pancho Medina MD on 12/29/18 at 1515. Scribe Documentation Reviewed: Yes Provider Attestation: The documentation as recorded by the Katja dye accurately reflects the service I personally performed and the decisions made by me, Dr. Pancho Medina MD Status of Scribe Document: Viewed
[2018-12-29] MEDS ORDERED: Meclizine TAB* 12.5 MG PO ONE (13:32)
[2018-12-29] MEDS ORDERED: Lorazepam PYXIS KEY PRN (14:09)
[2018-12-29] MEDS ORDERED: LORazepam INJ* 2 MG/ML 1 ML VIAL IV PUSH ONE (14:09)
[2018-12-29 14:51] VITALS: BP 135/106
== END 2018-12-29 14:51 | disposition home or self-care (01) ==
LOC: ED 11:21
DX: H81.399 Other peripheral vertigo, unspecified ear (principal)
CPT/HCPCS: 36415; 80053; 84484; 85025; 85610; 93005; 96374; 99282; A9270-GY; J2060

== ENCOUNTER 2019-01-03 09:27 | Emergency (ER) | payer OTHER ==
[2019-01-03 09:37] VITALS: BP 155/82
--- NOTE | 2019-01-03 09:51 | UC ---
Eye Complaint HPI - HPI Summary HPI Summary: 48-year-old male who has had a small stye on his left lower eyelid a few weeks ago which is now resolving. He now has a larger one on his upper left eyelid which he has had approximately 3 or 4 weeks. He states it's much better today and it has started draining. He denies any vision loss or change. - History of Current Complaint Chief Complaint: UCEye Stated Complaint: LEFT EYE COMPLAINT Time Seen by Provider: 01/03/19 09:29 Hx Obtained From: Patient Onset/Duration: Gradual Onset Timing: Weeks Severity Initially: Mild Severity Currently: Mild Pain Intensity: 2 Location of Injury: Other Aggravating Factor(s): Nothing Alleviating Factor(s): Nothing - No injury Associated Signs And Symptoms: Positive: Drainage (Purulent) - The stye has started draining today. - Allergies/Home Medications Allergies/Adverse Reactions: Allergies Allergy/AdvReac Type Severity Reaction Status Date / Time No Known Allergies Allergy Verified 01/03/19 09:38 PMH/Surg Hx/FS Hx/Imm Hx Previously Healthy: Yes - Surgical History Surgical History: Yes Surgery Procedure, Year, and Place: ear surgery - Family History Known Family History: Positive: Cardiac Disease, Hypertension, Diabetes - Social History Alcohol Use: None Alcohol Amount: pt reports drinking all day everyday past several years Substance Use Type: Marijuana Substance Use Comment - Amount & Last Used: daily Smoking Status (MU): Never Smoked Tobacco - Immunization History Most Recent Influenza Vaccination: jan 2016 Most Recent Pneumonia Vaccination: 2015 Review of Systems All Other Systems Reviewed And Are Negative: Yes Skin: Positive: Other - Patient has a stye on upper eyelid for about 4 weeks and the lower eyelid which is resolving. Is Patient Immunocompromised?: No Physical Exam Triage Information Reviewed: Yes Appearance: Well-Appearing, No Pain Distress, Well-Nourished Vital Signs: Initial Vital Signs Temp 98.3 F 01/03/19 09:31 Pulse 118 01/03/19 09:31 Resp 18 01/03/19 09:31 BP 155/82 01/03/19 09:31 Pulse Ox 98 01/03/19 09:31 Vital Signs Reviewed: Yes Eyes: Positive: Conjunctiva Clear, Other: - PERRLA, EOMI, resolving stye left lower eyelid with a small ulceration which appears healing. The left upper stye is larger but does have a scabbed area where has been draining. With eversion of the eyelid there is no ulceration underneath. Nontender on palpation. No orbital cellulitis. Skin: Positive: Other - See above notes. Eye Complaint Course/Dx - Course Course Of Treatment: At this point in time I believe these styes are resolving with warm moist compresses. There is no indication of secondary skin infection. Patient is to follow-up either with the transportation maintenance specialist for finish saw operator over the next 4-5 days if no improvement. - Differential Dx/Diagnosis Provider Diagnosis: Hordeolum internum left lower eyelid, Hordeolum externum left upper eyelid Discharge - Sign-Out/Discharge Documenting (check all that apply): Patient Departure All imaging exams completed and their final reports reviewed: No Studies - Discharge Plan Condition: Good Disposition: HOME Patient Education Materials: Homero (ED) Referrals: Makeda Patel MD [Primary Care Provider] - Jasvir Song MD [Medical Doctor] - Jose Suárez MD [Medical Doctor] - Additional Instructions: Continue with warm moist compresses 4-6 times a day 20 minutes each time. Follow-up with the finish saw operator or transportation maintenance specialist for recheck in 4 or 5 days if no improvement. Avoid rubbing the eyes. - Billing Disposition and Condition Condition: GOOD Disposition: Home - Attestation Statements Provider Attestation: I was available for consult. This patient was seen by the OSIEL. The patient was not presented to , seen by or examined by -Hal Cota MD
== END 2019-01-03 09:59 | disposition home or self-care (01) ==
LOC: UCEAST 09:27
DX: H00.014 Hordeolum externum left upper eyelid (principal); H00.015 Hordeolum externum left lower eyelid
CPT/HCPCS: 99211; G0463